=== PATIENT | male | born 1950 ===

== ENCOUNTER 2018-01-16 10:23 | Day surgery (SDC) | payer SELFPAY ==
[2018-01-16 10:40] VITALS: BMI 26.6
[2018-01-16] MEDS ORDERED: Propofol 10 mg/ml Inj (20 ML) ONE ×3 (11:42→12:34)
[2018-01-16] MEDS ORDERED: Midazolam 2 MG/2 ML VIAL ONE (11:42)
[2018-01-16] MEDS ORDERED: Lidocaine 2% Jelly (Uro-Jet) ONE (11:43)
[2018-01-16] MEDS ORDERED: ceFAZolin IV 1 gm in Dextrose 1 GM/50 ML BAG IVPB ONE (11:43)
--- NOTE | 2018-01-16 13:00 | PCM.SURG1 ---
Surgeon's Initial Post Op Note - Surgeon's Notes Surgeon: saravanan Flex O Writer Operator: none Type of Anesthesia: IV Sedation Anesthesia Administered By: Jennifer Pre-Operative Diagnosis: bph.elevated psa.gross hematuria. Operative Findings: bph.prostate bleeding.papillary lesions rt.lateral wall.prostate calculi. Post-Operative Diagnosis: bph.papillary lesios rt.lateral wall.prostate bleeding. Operation Performed: cystoscopy.bladder biopsy -fulguration.prostate bleeding fulguration. Specimen/Specimens Removed: papillary bladder lesion. Estimated Blood Loss: EBL {In ML}: 10 Blood Products Given: N/A Drains Used: No Drains Post-Op Condition: Good Date of Surgery/Procedure: 01/16/18 Time of Surgery/Procedure: 13:04
[2018-01-16] MEDS ORDERED: HYDROmorphone 0.5 mg/0.5 ml ISec IVP PRN (13:16)
[2018-01-16 13:25] VITALS: TEMP 97
[2018-01-16 14:30] VITALS: BP 59/73; PULSE 90; RESP 18; O2SAT 100
--- NOTE | 2018-01-21 03:19 | OP ---
PROCEDURE DATE: 01/16/2018 PREOPERATIVE DIAGNOSES: Benign prostatic hypertrophy, gross hematuria. POSTOPERATIVE DIAGNOSES: Benign prostatic hypertrophy, prostatitis, prostatic calculi, papillary lesion of right lateral wall. OPERATION: Cystoscopy, bladder biopsy with fulguration, prostate bleeding fulguration. SURGEON: Kumar Linn MD FINDINGS: Good bladder capacity. Marked trabeculated bladder, a small area about 0.5 cm with superficial papillary lesion with the right lateral wall. Ureteral orifices not visualized because of the very large prostate gland. Moderate prostate bleeding present and prostatic calculi were present. Membranous and pendulous urethra normal. TECHNIQUE: This patient was placed in lithotomy position. The external genitalia were prepped and draped in the usual sterile fashion. A # 22 panendoscope was introduced in the bladder. Findings as above. A small area of papillary lesion of the right lateral wall was biopsied and then thoroughly fulgurated. Also, the moderate prostate bleeding due to prostatitis was also fulgurated. A #20 [employer] [place] [place] [employer] [place] catheter was placed in the bladder over a 0.35 guidewire. The bladder was irrigated. No bleeding was present at the end of the procedure. The patient withstood the procedure well and returned to recovery room in satisfactory condition. Kumar Linn MD
== END 2018-01-16 16:00 | disposition home or self-care (01) ==
LOC: C.SDS 10:23
PROVIDERS: ATTEND Urology
DX: N40.0 Benign prostatic hyperplasia without lower urinary tract symptoms (principal); R31.0 Gross hematuria
CPT/HCPCS: 52204; 88305; A4358; C1769; J0690; J1170

== ENCOUNTER 2018-07-11 19:51 | Emergency (ER) | payer OTHER, SELFPAY ==
[2018-07-11 19:51] VITALS: BMI 26.6
[2018-07-11] MEDS ORDERED: Lidocaine Hydrochloride 10 ML INJ ONE (21:26)
[2018-07-11] MEDS ORDERED: Lidocaine 1% Inj (20ml) INFIL ONE (23:05)
--- NOTE | 2018-07-11 23:06 | C.PDOC ---
History Of Present Illness 67 y/o male presents to ed with laceration to left lower leg, pt tripped on pavement and landed on sharp metal object. pt went to another doctor prior to coming to ed, was given a tetanus shot and told to go to hospitalfor further evaluation. no other injuries. did not hit head. no cp or dizziness prior to fall. Time Seen by Provider: 07/11/18 20:18 Chief Complaint (Nursing): Abnormal Skin Integrity History Per: Patient History/Exam Limitations: no limitations Onset/Duration Of Symptoms: Hrs (7), Days Current Symptoms Are (Timing): Still Present Location Of Injury: Left: Leg Quality Of Symptoms: Painful, Swollen Past Medical History Reviewed: Historical Data, Nursing Documentation, Vital Signs Vital Signs: Last Vital Signs Temp 98.7 F 07/11/18 20:15 Pulse 64 07/11/18 20:15 Resp 16 07/11/18 20:15 BP 197/98 H 07/11/18 20:15 Pulse Ox 98 07/11/18 20:15 - Medical History PMH: Fractures (LEFT CLAVICAL 35 YEARS AGO), HTN Family History: States: Unknown Family Hx - Social History Hx Alcohol Use: No Hx Substance Use: No - Immunization History Hx Tetanus Toxoid Vaccination: Yes Hx Influenza Vaccination: No Hx Pneumococcal Vaccination: No Review Of Systems Constitutional: Negative for: Fever, Chills Cardiovascular: Negative for: Chest Pain Respiratory: Negative for: Cough Gastrointestinal: Negative for: Nausea, Vomiting, Abdominal Pain Skin: Positive for: Bruising, Other (laceration left leg swelling left leg) Neurological: Negative for: Weakness, Numbness Physical Exam - Physical Exam Appears: Non-toxic, No Acute Distress Skin: Warm, Dry, Ecchymosis (lateral left calf surrounding laceration ), Other (3 x 3 cm L shaped laceration to mid left calf with swelling and surrounding ecchymosis, no active bleeding, clots seen in laceration, calf soft) Head: Atraumatic, Normacephalic Eye(s): bilateral: Normal Inspection Back: No Vertebral Tenderness Extremity: Swelling (swelling, ecchymosis and tenderness left lower extremity. no active bleeding form 3x3 L shaped laceration), Other (senbsation and strenght intact in left leg. ) Extremity: Left: Bony Point Tenderness (lower leg) Pulses: Left Dorsalis Pedis: Normal, Right Dorsalis Pedis: Normal Neurological/Psych: Oriented x3, Normal Speech, Normal Cognition, Normal Motor, Normal Sensation ED Course And Treatment O2 Sat by Pulse Oximetry: 98 Medical Decision Making Medical Decision Making: lac to left calf with clot formation and swelling; with pressure, hematoma/clots expressed from wound with mild pressure with active bleeding following. wound anesthetized with 1% lidocaine 10 ml and irrigated with ns. wound repaired with 12 sutures of 3-0 and 4-0 ethilon. wound continue to swell after suturing; pr essure dressing applied and leg elevated. will observe patient for a while. mild swelling surrounding wound. compartment soft. sensation intact to entire left extremity. patient able to move toes, foot left. Dr Dumas aware, will check wound prior to pt leaving ed. Disposition Counseled Patient/Family Regarding: Studies Performed, Diagnosis, Need For Followup, Rx Given - Disposition Disposition: HOME/ ROUTINE Disposition Time: 23:23 Condition: GOOD Additional Instructions: Keep leg elevated, with dressing on for next 24 hours. Make sure leg not getting bigger or more swollen or painful, or continued bleeding or numb or any tingling. If so, you must return to the ER right away for further treatment. Tylenol for pain. Suture removal in 10 days. Instructions: Laceration Repair With Stitches (DC) Forms: General Discharge Instructions, [facility] ([place]), Work Excuse - Clinical Impression Clinical Impression: Laceration of left lower leg
[2018-07-11 23:45] VITALS: BP 143/78; PULSE 63; RESP 18; TEMP 97.7
--- NOTE | 2018-07-12 09:00 | RAD ---
PROCEDURE: Radiographs of the left tibia and fibula. HISTORY: eval for fx, lac to mid leg COMPARISON: None available. TECHNIQUE: Frontal and lateral views obtained. FINDINGS: BONES: No acute displaced fracture. JOINT SPACES: No dislocation. OTHER FINDINGS: Evidence of soft tissue laceration with overlying bandage, mid lower extremity. No evidence of radiopaque foreign body. IMPRESSION: Evidence of soft tissue laceration with overlying bandage, mid lower extremity. No acute displaced fracture or dislocation. If symptoms persist, or if there is continued clinical concern, x-ray follow-up in 7-10 days should be considered.
[2018-07-13 23:21] VITALS: O2SAT 98
== END 2018-07-12 00:24 | disposition home or self-care (01) ==
LOC: C.ER 19:51
DX: S81.812A Laceration without foreign body, left lower leg, initial encounter (principal); W01.0XXA Fall on same level from slipping, tripping and stumbling without subsequent striking against object, initial encounter; Y92.480 Sidewalk as the place of occurrence of the external cause; I10 Essential (primary) hypertension

== ENCOUNTER 2018-07-13 14:40 | Emergency (ER) | payer OTHER ==
[2018-07-13 14:40] VITALS: BMI 26.6
[2018-07-13 14:58] VITALS: BP 157/78; PULSE 73; RESP 18; TEMP 99.1; O2SAT 98
[2018-07-13] MEDS ORDERED: Bacitracin 500 Units/gm Oint Foilpak UD TOP ONE (15:52)
--- NOTE | 2018-07-13 15:54 | C.PDOC ---
Time Seen by Provider: 07/13/18 15:32 Chief Complaint (Nursing): Wound Check Past Medical History Vital Signs: Last Vital Signs Temp 99.1 F 07/13/18 14:55 Pulse 73 07/13/18 14:55 Resp 18 07/13/18 14:55 BP 157/78 H 07/13/18 14:55 Pulse Ox 98 07/13/18 14:55 - Medical History PMH: Fractures (LEFT CLAVICAL 35 YEARS AGO), HTN Family History: States: Unknown Family Hx - Social History Hx Alcohol Use: No Hx Substance Use: No - Immunization History Hx Tetanus Toxoid Vaccination: Yes Hx Influenza Vaccination: No Hx Pneumococcal Vaccination: No ED Course And Treatment O2 Sat by Pulse Oximetry: 98 Medical Decision Making Medical Decision Making: pt gor wound check. mild erythema around wound edges, minimal warmth, d/c with keflex Disposition - Disposition Referrals: [facility] [Outside] Disposition: HOME/ ROUTINE Disposition Time: 16:53 Condition: GOOD Additional Instructions: Puedes ducharte; cambiar el vendaje diariamente en la pierna; lvela suavemente con agua y jabn, squela y luego aplique bacitracina (pomada antiboitoc). En; pierna elevada cuando sea posible; Compresas fras en la pierna para ayudar con la hinchazn. Tylenol para el dolor. Satanta los antibiticos segn lo prescrito. Regrese a la sarkis de emergencias para detectar cualquier signo de infeccin, lindsay enrojecimiento, peor hinchazn, drenaje de la herida. Fiebre, sensacin disminuida, o cualquier otra inquietud. Retirada de suturas en 8 arredondo. You may shower; change dressing daily on leg; wash gently with soap and water, pat dry, then apply bacitracin (antiboitoc ointment). En; leg elevated whem possible; cold compresses to leg to help with swelling. Tylenol for pain. Take antibiotics as prescribed. Return to ER for any signs of infection such as redness, worse swelling, drainage from wound. fever, decreased sensation, or any other concerns. Suture removal in 8 days. Prescriptions: Acetaminophen [Tylenol 325mg tab] 650 mg PO Q4 #50 tab Bacitracin OINT 1 applic TOP BID #1 tube Cephalexin [cephalexin] 500 mg PO Q6 #28 cap Instructions: Wound Care (DC) Forms: [employer] (Vietnamese) - Clinical Impression Clinical Impression: Visit for wound check
[2018-07-13] MEDS ORDERED: Bacitracin 500 Units/gm Oint Foilpak UD ONE (16:08)
== END 2018-07-13 17:01 | disposition home or self-care (01) ==
LOC: C.ER 14:40
DX: Z48.00 Encounter for change or removal of nonsurgical wound dressing (principal); I10 Essential (primary) hypertension

== ENCOUNTER 2018-07-17 10:24 | Inpatient (IN) | payer OTHER ==
[2018-07-17 10:29] VITALS: BMI 24.9
[2018-07-17 12:27] LABS: MEAN CELL VOLUME 89.7 fL (80.0-94.0); MEAN CORPUSCULAR HEMOGLOBIN 30.2 pg (27.0-31.0); MEAN CORPUSCULAR HGB CONC 33.7 g/dL (33.0-37.0); MEAN PLATELET VOLUME 8.2 fL (7.2-11.7); RBC 4.35 Mil/uL (4.40-5.90); RED CELL DISTRIBUTION WIDTH 14.1 % (11.5-14.5); WHITE BLOOD COUNT 7.9 K/uL (4.8-10.8)
[2018-07-17 12:31] LABS: HEMOGLOBIN 13.1 g/dL (12.0-18.0)
[2018-07-17] MEDS ORDERED: Piperacillin/Tazobact 3.375 GM in Sodium Chloride 100 ML IVPB STA (12:35)
[2018-07-17 12:39] LABS: ALB/GLOB RATIO 1.2 (1.0-2.1); ALBUMIN 4.4 g/dL (3.5-5.0); ALT/SGPT 29 U/L (21-72); AST/SGOT 34 U/L (17-59); BLOOD UREA NITROGEN 14 mg/dL (9-20); GFR NON-AFRICAN AMERICAN > 60
[2018-07-17] MEDS ORDERED: Piperacillin/Tazobact 3.375 gm 100 ML IVPB ONE (12:55)
--- NOTE | 2018-07-17 14:26 | C.PDOC ---
History Of Present Illness pt here for third visit in ed, was started on keflex 2nd ed visit on 07/13 for redness around wound. pt sts he took medications as prescribed. pt now here today with increased redness, swelling and pain to left leg, no fever or chills. Time Seen by Provider: 07/17/18 11:13 Chief Complaint (Nursing): Lower Extremity Problem/Injury History Per: Patient History/Exam Limitations: no limitations Past Medical History Reviewed: Historical Data, Nursing Documentation, Vital Signs Vital Signs: Last Vital Signs Temp 98.6 F 07/17/18 14:16 Pulse 63 07/17/18 14:16 Resp 16 07/17/18 14:16 BP 162/87 H 07/17/18 14:16 Pulse Ox 99 07/17/18 14:16 - Medical History PMH: Fractures (LEFT CLAVICAL 35 YEARS AGO), HTN Surgical History: No Surg Hx Family History: States: Unknown Family Hx - Social History Hx Alcohol Use: No Hx Substance Use: No - Immunization History Hx Tetanus Toxoid Vaccination: Yes Hx Influenza Vaccination: No Hx Pneumococcal Vaccination: No Review Of Systems Musculoskeletal: Positive for: Leg Pain (left) Physical Exam - Physical Exam Appears: Non-toxic, No Acute Distress Skin: Warm, Dry, Other (L-shaped laceration to left mid lower leg with ecchymosis to medial calf that extends to the lower thigh. there is surrounding erythema and warmth 3 inches distal, with swelling to the foot. ) Head: Atraumatic, Normacephalic Eye(s): bilateral: Normal Inspection Oral Mucosa: Moist Neck: Supple Chest: Symmetrical, No Deformity, No Tenderness Cardiovascular: Rhythm Regular, No Murmur Respiratory: Normal Breath Sounds, No Rales, No Rhonchi, No Wheezing Extremity: Normal ROM, Capillary Refill (less than 2 seconds ) Pulses: Left Dorsalis Pedis: Normal, Right Dorsalis Pedis: Normal Neurological/Psych: Oriented x3, Normal Speech, Normal Cognition ED Course And Treatment - Laboratory Results Result Diagrams: 07/17/18 12:23 07/17/18 12:23 Lab Results: Total Bilirubin 1.1 mg/dL (0.2-1.3) 07/17/18 12:23 AST 34 U/L (17-59) 07/17/18 12:23 ALT 29 U/L (21-72) 07/17/18 12:23 Alkaline Phosphatase 86 U/L (38-126) 07/17/18 12:23 Total Protein 8.1 g/dL (6.3-8.3) 07/17/18 12:23 Albumin 4.4 g/dL (3.5-5.0) 07/17/18 12:23 Globulin 3.7 gm/dL (2.2-3.9) 07/17/18 12:23 Albumin/Globulin Ratio 1.2 (1.0-2.1) 07/17/18 12:23 O2 Sat by Pulse Oximetry: 99 Medical Decision Making Medical Decision Making: Progress: Bloodwork, Venous Duplex Scan of left lower extremity ordered. Percocet PO and Zosyn IV given. discussed with Dr Cunningham, will admit to his service for worsening cellulitis that failed outpatient treatment. older charts reviewed; on initial ed visit, pt went to urgent care prior to coming to ed and was given a tetanus shopt at this urgent care facility per patient. Disposition Discussed With : Cong Grier Doctor Will See Patient In The: Hospital - Disposition Disposition: HOSPITALIZED Disposition Time: 14:30 Condition: GOOD - Clinical Impression Clinical Impression: Cellulitis of left anterior lower leg
[2018-07-17] MEDS ORDERED: Oxycodone/Acetaminophen 5/325 mg Tab PO STA (14:30)
[2018-07-17] MEDS ORDERED: Oxycodone/Acetaminophen 5/325 mg Tab ONE (14:50)
[2018-07-17] MEDS ORDERED: Vancomycin 1 GM 1 GM/250 ML BAG IVPB ONE (16:54)
[2018-07-17] MEDS: Piperacillin/Tazobact 3.375 GM in Sodium Chloride 100 ML IVPB SCH ×2 (19:31→22:01)
[2018-07-17] MEDS: Saccharomyces Boulardi 250 mg Cap PO SCH (19:32)
--- NOTE | 2018-07-17 21:30 | CP.PCM.HP ---
<Court Garg - Last Filed: 07/17/18 21:22> History of Present Illness - History of Present Illness History of Present Illness: Mr. Kaylyn Villeda is a 67 year old male PMH hypertension came to the ED for wound check. On Sat, 07/11, he tripped on pavement and landed on a sharp metal object. He received a tetanus booster at which recommended he come to the ED for sutures of the laceration. They placed 12 sutures total after expressing pus and hematomas. On 07/13, he returned to the ED for reddening of the wound, getting warmer. He was discharged with Cephalexin and Bacitracin. Patient states that he has been wrapping the wound with plastic in the shower, washing the wound with warm water and covering with Bacitracin as directed. He states he has been compliant with medication. He came in today as the reddening has spread and there is ecchymosis extending down his ankle and above his knee beyond the borders of the skin marker drawn during previous visits and ankle swelling. Denies fever, chills, weakness, chest pain, numbness, tingling, abdominal pain. PMD: none PMH: HTN controlled by weight los Med: Centrum MVI All: NKA PSxHx: Clavicle Fx repair 35 year ago FamHx: Mother - DM. Denies CAD, DM, CA, CT, CVA, bleeding disorders SocHx: Denies ever tobacco, alcohol, illicit drugs. Works at a [employer] office. Lives alone. Full Code Present on Admission - Present on Admission Any Indicators Present on Admission: No Review of Systems - Constitutional Constitutional: absent: Chills, Fatigue, Fever, Headache, Night Sweats, Weakness - EENT Eyes: absent: Blurred Vision, Diplopia Ears: absent: Tinnitus, Dizziness Nose/Mouth/Throat: absent: Dysphagia, Odynophagia - Cardiovascular Cardiovascular: absent: Chest Pain, Claudication, Diaphoresis, Dyspnea, Lightheadedness, Palpitations, Syncope - Respiratory Respiratory: absent: Cough, Dyspnea, Hemoptysis, Wheezing - Gastrointestinal Gastrointestinal: absent: Abdominal Pain, Constipation, Diarrhea, Nausea, Vomiting - Genitourinary Genitourinary: absent: Dysuria, Urinary Frequency, Urinary Hesitance - Musculoskeletal Musculoskeletal: Joint Swelling. absent: Arthralgias, Muscle Weakness, Myalgias, Numbness, Tingling - Integumentary Integumentary: Lesions, Non-Healing Lesions, Skin Pain, Swelling, Unusual Bruising. absent: Pruritus, Jaundice - Neurological Neurological: absent: Dizziness, Numbness, Headaches, Memory Loss, Syncope, Tingling - Psychiatric Psychiatric: absent: Anxiety, Depression, Hopelessness - Endocrine Endocrine: absent: Cold Intolorance, Excessive Sweating, Fatigue, Heat Intolorance - Hematologic/Lymphatic Hematologic: absent: Easy Bleeding, Easy Bruising Past Patient History - Tetanus Immunizations Tetanus Immunization: Up to Date - Past Medical History & Family History Past Medical History?: No - Past Social History Smoking Status: Never Smoked Alcohol: None Drugs: Denies Home Situation {Lives}: Alone - CARDIAC Hx Hypertension: Yes - MUSCULOSKELETAL/RHEUMATOLOGICAL Hx Fractures: Yes (LEFT CLAVICAL 35 YEARS AGO) - GENITOURINARY/GYNECOLOGICAL Hx Genitourinary Disorders: Yes Hx Prostate Problems: Yes (ELEVATED PSA) - PSYCHIATRIC Hx Substance Use: No - SURGICAL HISTORY Hx Surgeries: Yes Hx Orthopedic Surgery: Yes (REPAIR FRACTURED CLAVICAL) - ANESTHESIA Hx Anesthesia: Yes Hx Anesthesia Reactions: No Meds Allergies/Adverse Reactions: Allergies Allergy/AdvReac Type Severity Reaction Status Date / Time No Known Allergies Allergy Verified 07/17/18 10:28 Physical Exam - Constitutional Appears: Well, Non-toxic, No Acute Distress - Head Exam Head Exam: ATRAUMATIC, NORMOCEPHALIC - Eye Exam Eye Exam: EOMI, Normal appearance, PERRL - ENT Exam ENT Exam: Mucous Membranes Moist - Neck Exam Neck exam: Positive for: Full Rom, Normal Inspection. Negative for: Lymphadeno amber - Respiratory Exam Respiratory Exam: Clear to Auscultation Bilateral, NORMAL BREATHING PATTERN. absent: Rales, Rhonchi, Wheezes - Cardiovascular Exam Cardiovascular Exam: REGULAR RHYTHM, +S1, +S2. absent: Gallop, Rubs, Systolic Murmur - GI/Abdominal Exam GI & Abdominal Exam: Normal Bowel Sounds, Soft. absent: Distended, Firm, Guarding, Tenderness - Extremities Exam Extremities exam: Positive for: pedal edema, pedal pulses present Additional comments: IV access in R hand - Back Exam Back exam: absent: CVA tenderness (L), CVA tenderness (R) - Neurological Exam Neurological exam: Alert, CN II-XII Intact, Oriented x3, Reflexes Normal Additional comments: patient walks on crutches to avoid pressure on wound - Psychiatric Exam Psychiatric exam: Normal Affect, Normal Mood - Skin Skin Exam: Warm Additional comments: 5 inch bent laceration on anterior aspect L ernst. actively expressing hematoma and pus. [address] extensive indurated erythema around the lac. ecchymosis extends down anterior aspect of leg, wraps around ankle, and extending upward along the posterior aspect to 1/3 up the posterior thigh. non-tender to palpation except directly along laceration pedal pulse palpable bilaterally L foot warm. restricted ROM 2/2 edema of L ankle Results - Vital Signs Recent Vital Signs: Last Vital Signs Temp 98.4 F 07/17/18 19:39 Pulse 70 07/17/18 19:39 Resp 16 07/17/18 19:39 BP 189/89 H 07/17/18 19:39 Pulse Ox 100 07/17/18 19:39 - Labs Result Diagrams: 07/17/18 12:23 07/17/18 12:23 Labs: Laboratory Results - last 24 hr 07/17/18 07/17/18 12:23 12:23 WBC 7.9 RBC 4.35 L Hgb 13.1 D Hct 39.0 MCV 89.7 MCH 30.2 MCHC 33.7 RDW 14.1 Plt Count 397 MPV 8.2 Sodium 136 Potassium 4.1 Chloride 102 Carbon Dioxide 24 Anion Gap 13 BUN 14 Creatinine 0.6 L Est GFR ( Amer) > 60 Est GFR (Non-Af Amer) > 60 Random Glucose 104 Calcium 9.0 Total Bilirubin 1.1 AST 34 ALT 29 Alkaline Phosphatase 86 Total Protein 8.1 Albumin 4.4 Globulin 3.7 Albumin/Globulin Ratio 1.2 Assessment & Plan - Assessment and Plan (Free Text) Assessment: 67yo M PMH HTN admitted for cellulitis of poorly healing L ernst laceration. Plan: Cellulitis L Leg Poorly healing laceration refractory to outpatient treatment - sutures to be removed 10 days after placement, 07/21 - LE Doppler (07/17): neg for DVT - CT L LE without contrast (07/17): pending read - f/u Blood Cx - f/u Wound Cx - Percocet 1 tab po, Zosyn 3.375gm IVPB given in ED - Motrin 400mg po q4 prn for pain - Zosyn 3.375gm IVPB q6 (started 07/17) - Vanc 1gm IVPB q12 (started 07/17) - Podiatry consulted, Dr. Vanessa Hypertension - patient not on anything at home. controlled via lifestyle choices - Losartan 50mg po daily - Norvasc 5mg po daily - monitor vitals PPx - DVT: Heparin 5000u sc q8 - GI: Florastor 250mg po bid - Diet: HHD 2gNa d/w Dr. Cherrie Garg PGY-1 - Date & Time Date: 07/17/18 Time: 15:30 <Cong Grier - Last Filed: 07/18/18 19:16> Results - Vital Signs Recent Vital Signs: Last Vital Signs Temp 98 F 07/18/18 15:56 Pulse 80 07/18/18 15:56 Resp 20 07/18/18 15:56 BP 146/81 07/18/18 15:56 Pulse Ox 99 07/18/18 15:56 - Labs Result Diagrams: 07/18/18 07:55 07/18/18 07:56 Labs: Laboratory Results - last 24 hr 07/18/18 07/18/18 07/18/18 07:55 07:55 07:56 WBC 9.7 RBC 4.04 L Hgb 12.2 Hct 36.1 MCV 89.4 MCH 30.1 MCHC 33.7 RDW 14.1 Plt Count 391 MPV 8.3 Neut % (Auto) 71.2 Lymph % (Auto) 15.0 L [place] % (Auto) 8.4 Eos % (Auto) 4.5 H Baso % (Auto) 0.9 Neut # (Auto) 6.9 Lymph # (Auto) 1.5 [place] # (Auto) 0.8 Eos # (Auto) 0.4 Baso # (Auto) 0.1 PT 11.9 INR 1.1 APTT 41 H Sodium 135 Potassium 3.9 Chloride 102 Carbon Dioxide 27 Anion Gap 10 BUN 12 Creatinine 0.8 Est GFR ( Amer) > 60 Est GFR (Non-Af Amer) > 60 Random Glucose 106 Calcium 8.4 L Phosphorus 3.7 Magnesium 2.2 Total Bilirubin 1.2 AST 31 ALT 25 Alkaline Phosphatase 80 Total Protein 7.0 Albumin 3.8 Globulin 3.2 Albumin/Globulin Ratio 1.2 Attending/Attestation - Attestation I have personally seen and examined this patient.: Yes I have fully participated in the care of the patient.: Yes I have reviewed all pertinent clinical information: Yes Notes (Text): 67yo M PMH HTN admitted for cellulitis of poorly healing L ernst laceration. Plan: Cellulitis L Leg with Abscess and hematoma ecchymosis Hypertension
[2018-07-18] MEDS: Piperacillin/Tazobact 3.375 GM in Sodium Chloride 100 ML IVPB SCH ×4 (04:30→22:12)
[2018-07-18 08:00] LABS: BASO # 0.1 K/uL (0.0-0.2); BASO % 0.9 % (0.0-2.0); EOS # 0.4 K/uL (0.0-0.7); EOS % 4.5 % (0.0-4.0); HEMOGLOBIN 12.2 g/dL (12.0-18.0); LYMPH # 1.5 K/uL (1.0-4.3); MEAN CELL VOLUME 89.4 fL (80.0-94.0); MEAN CORPUSCULAR HEMOGLOBIN 30.1 pg (27.0-31.0); MEAN CORPUSCULAR HGB CONC 33.7 g/dL (33.0-37.0); MEAN PLATELET VOLUME 8.3 fL (7.2-11.7); MONO # 0.8 K/uL (0.0-0.8); MONO % 8.4 % (0.0-10.0); NEUT # 6.9 K/uL (1.8-7.0); NEUT % 71.2 % (50.0-75.0); RBC 4.04 Mil/uL (4.40-5.90); RED CELL DISTRIBUTION WIDTH 14.1 % (11.5-14.5); WHITE BLOOD COUNT 9.7 K/uL (4.8-10.8)
[2018-07-18 08:16] LABS: INR 1.1; PROTHROMBIN TIME 11.9 SECONDS (9.7-12.2)
[2018-07-18 08:26] LABS: ALB/GLOB RATIO 1.2 (1.0-2.1); ALBUMIN 3.8 g/dL (3.5-5.0); ALT/SGPT 25 U/L (21-72); AST/SGOT 31 U/L (17-59); BLOOD UREA NITROGEN 12 mg/dL (9-20); CALCIUM 8.4 mg/dl (8.6-10.4); GFR NON-AFRICAN AMERICAN > 60
--- NOTE | 2018-07-18 08:50 | CT ---
CT left tibia and fibula HISTORY: Laceration. Wound. Comparison: X-ray dated 07/11/2018 Technique: Multiple contiguous axial images were performed through the left tibia and fibula without the use of intravenous contrast. Subsequently, sagittal and coronal reformatted images were obtained. This CT exam was performed using one or more of the following dose reduction techniques: Automated exposure control, adjustment of the mA and/or kV according to patient size, and/or use of iterative reconstruction technique. Findings: Prominent reticulation and edema seen within the circumferential subcutaneous soft tissues of the left lower extremity at the level of the tibia and fibula suggestive for cellulitis. Additional prominent medial and lateral malleolar soft tissue swelling. At the level of the proximal to mid medullary cavity of the left tibia, extending along the anteromedial cortex of the tibia, within the subcutaneous soft tissues as seen on series 2, image 42 and series 602 image 27, there is an ill-defined lobulated heterogeneous hyperattenuated collection measuring 6.8 x 1.9 x 6.8 centimeters. This demonstrates a Hounsfield unit attenuation of 49. The soft tissue laceration is seen anteromedially at this level as demonstrated on series 2, image 48. Prominent reticulation and edema as well as fluid within the adjacent subcutaneous soft tissues circumferentially. This is of uncertain clinical etiology and may represent a hematoma and/or complex hematogenous collection. Additional considerations may include a developing phlegmon and/or abscess collection and or soft tissue mass and or additional etiology. Clinical correlation. This collection/lesion abuts the anteromedial cortex of the tibia; however, there appears to be no gross cortical irregularity at this juncture. Continued interval follow-up may be helpful. Narrowing of the patellofemoral joint space. Degenerative changes noted at the talonavicular joint space as well as within the midfoot. Patchy osteopenia within the anterior calcaneus. Plantar and dorsal calcaneal spurring. Impression: At the level of the proximal to mid medullary cavity of the left tibia, extending along the anteromedial cortex of the tibia, within the subcutaneous soft tissues as seen on series 2, image 42 and series 602 image 27, there is an ill-defined lobulated heterogeneous hyperattenuated collection measuring 6.8 x 1.9 x 6.8 centimeters. This demonstrates a Hounsfield unit attenuation of 49. The soft tissue laceration is seen anteromedially at this level as demonstrated on series 2, image 48. Prominent reticulation and edema as well as fluid within the adjacent subcutaneous soft tissues circumferentially. This is of uncertain clinical etiology and may represent a hematoma and/or complex hematogenous collection. Additional considerations may include a developing phlegmon and/or abscess collection and or soft tissue mass and or additional etiology. Clinical correlation. This collection/lesion abuts the anteromedial cortex of the tibia; however, there appears to be no gross cortical irregularity at this juncture. Continued interval follow-up may be helpful. Additional findings as above. A preliminary report was generated at 7:40 p.m. on 07/17/[address] Allan Swartz from [employer].
--- NOTE | 2018-07-18 09:53 | CP.PCM.CON ---
History of Present Illness - History of Present Illness History of Present Illness: Podiatry Consult Note- Dr. Vanessa 67 year old male with no PMH seen and evaluated at bedside for left leg cellulitis with possible abscess with attending Dr. Vanessa. Patient reports that on Saturday, a metal object hit his left leg and caused a laceration. He went to the emergency room in which he reports the wound was sutured up. Reports increase swelling and pain and came back to the ED on Saturday in which he was given antibiotics. Reports feeling pain to his left leg. Worse with touching or pressure. Reports the leg appears more red and increase in size. Patient denies nausea, fever, shortness of breath, chest pains or chills. Denies calf tenderness. PMH: denies ALL: NKDA FH: father- DM SH: denies smoking, drinking or illicit abilio use MEDS: denies Past Patient History - Tetanus Immunizations Tetanus Immunization: Up to Date - Past Medical History & Family History Past Medical History?: No - Past Social History Smoking Status: Never Smoked Alcohol: None Drugs: Denies Home Situation {Lives}: Alone - CARDIAC Hx Hypertension: Yes - MUSCULOSKELETAL/RHEUMATOLOGICAL Hx Fractures: Yes (LEFT CLAVICAL 35 YEARS AGO) - GENITOURINARY/GYNECOLOGICAL Hx Genitourinary Disorders: Yes Hx Prostate Problems: Yes (ELEVATED PSA) - PSYCHIATRIC Hx Substance Use: No - SURGICAL HISTORY Hx Surgeries: Yes Hx Orthopedic Surgery: Yes (REPAIR FRACTURED CLAVICAL) - ANESTHESIA Hx Anesthesia: Yes Hx Anesthesia Reactions: No Meds Allergies/Adverse Reactions: Allergies Allergy/AdvReac Type Severity Reaction Status Date / Time No Known Allergies Allergy Verified 07/17/18 10:28 - Medications Medications: Current Medications Amlodipine Besylate (Norvasc) 5 mg PO DAILY [facility] Last Admin: 07/17/18 20:30 Dose: 5 mg Heparin Sodium (Porcine) (Heparin) 5,000 units SC Q8 [facility] Last Admin: 07/18/18 05:49 Dose: 5,000 units Vancomycin HCl 1 gm/ Sodium (Chloride) 250 mls @ 166.7 mls/hr IVPB Q12H [facility]; Protocol Last Admin: 07/18/18 05:00 Dose: 166.7 mls/hr Piperacillin Sod/Tazobactam (Sod 3.375 gm/ Sodium Chloride) 100 mls @ 200 mls/hr IVPB Q6H [facility]; Protocol Last Admin: 07/18/18 04:30 Dose: 200 mls/hr Ibuprofen (Motrin Tab) 400 mg PO Q4 PRN PRN Reason: Pain, moderate (4-7) Losartan Potassium (Cozaar) 50 mg PO DAILY [facility] Last Admin: 07/17/18 17:09 Dose: 50 mg Saccharomyces Boulardii (Florastor) 250 mg PO BID [facility] Last Admin: 07/17/18 19:32 Dose: 250 mg Physical Exam - Constitutional Appears: Well, Non-toxic, No Acute Distress - Extremities Exam Extremities exam: Negative for: calf tenderness Additional comments: Left lower extremity examination: VASC: DP and PT palpable 2/4, temperature warm to warm, localized swelling to left anterior mid leg at site of injury/trauma; digital hair present. Edema noted to the lateral and medial malleolus of left ankle ORTHO: moderate-severe pain with palpation to the left anterior 2/3 of leg. MM is 5/5 in all four compartments. Ecchymosis noted to medial and lateral foot; no pain with palpation to the medial and lateral aspect of foot. Ecchymosis noted to posterior aspect of left knee NEURO: gross and protective sensation intact DERM: sutured laceration measuring approximately 5cm in length at the anterior 2/3 of leg with skin coapted and reapproximated. Erythema noted to periwound, no active purulence, or malodorous however fluctance appreciated with possible abscess/hematoma underlying closed laceration site. - Neurological Exam Neurological exam: Alert, Oriented x3 - Psychiatric Exam Psychiatric exam: Normal Affect, Normal Mood Results - Vital Signs Recent Vital Signs: Last Vital Signs Temp 98.8 F 07/18/18 07:00 Pulse 69 07/18/18 07:00 Resp 20 07/18/18 07:00 BP 155/82 H 07/18/18 07:00 Pulse Ox 97 07/18/18 07:00 - Labs Result Diagrams: 07/18/18 07:55 07/18/18 07:56 Labs: Laboratory Results - last 24 hr 07/17/18 07/17/18 07/18/18 12:23 12:23 07:55 WBC 7.9 9.7 RBC 4.35 L 4.04 L Hgb 13.1 D 12.2 Hct 39.0 36.1 MCV 89.7 89.4 MCH 30.2 30.1 MCHC 33.7 33.7 RDW 14.1 14.1 Plt Count 397 391 MPV 8.2 8.3 Neut % (Auto) 71.2 Lymph % (Auto) 15.0 L [place] % (Auto) 8.4 Eos % (Auto) 4.5 H Baso % (Auto) 0.9 Neut # (Auto) 6.9 Lymph # (Auto) 1.5 [place] # (Auto) 0.8 Eos # (Auto) 0.4 Baso # (Auto) 0.1 PT INR APTT Sodium 136 Potassium 4.1 Chloride 102 Carbon Dioxide 24 Anion Gap 13 BUN 14 Creatinine 0.6 L Est GFR ( Amer) > 60 Est GFR (Non-Af Amer) > 60 Random Glucose 104 Calcium 9.0 Phosphorus Magnesium Total Bilirubin 1.1 AST 34 ALT 29 Alkaline Phosphatase 86 Total Protein 8.1 Albumin 4.4 Globulin 3.7 Albumin/Globulin Ratio 1.2 07/18/18 07/18/18 07:55 07:56 WBC RBC Hgb Hct MCV MCH MCHC RDW Plt Count MPV Neut % (Auto) Lymph % (Auto) [place] % (Auto) Eos % (Auto) Baso % (Auto) Neut # (Auto) Lymph # (Auto) [place] # (Auto) Eos # (Auto) Baso # (Auto) PT 11.9 INR 1.1 APTT 41 H Sodium 135 Potassium 3.9 Chloride 102 Carbon Dioxide 27 Anion Gap 10 BUN 12 Creatinine 0.8 Est GFR ( Amer) > 60 Est GFR (Non-Af Amer) > 60 Random Glucose 106 Calcium 8.4 L Phosphorus 3.7 Magnesium 2.2 Total Bilirubin 1.2 AST 31 ALT 25 Alkaline Phosphatase 80 Total Protein 7.0 Albumin 3.8 Globulin 3.2 Albumin/Globulin Ratio 1.2 Assessment & Plan - Assessment and Plan (Free Text) Assessment: 67M with no PMH seen and evaluated for left leg closed laceration with likely underlying abscess/hematoma Plan: Patient seen and examined with attending Dr. Vanessa Discussed plan in detail with Dr. Vanessa Labs, vitals, chart reviewed Negative DVT CT Left lower extremity without contrast (07/17): ill-defined lobulated collection 6.8x1.9x6.8cm. prominent reticulation and edema circumferential around wound Sutures removed, cleansed and dressed with dsd and kerlix. Patient is sensate. Wound culture left ernst 07/17/18 gram negative laura preliminary Patient will go to the OR tomorrow at 12:30pm on 07/19/18 for incision and drainage of abscess/hematoma of left lower extremity with Dr. Vanessa Per primary "may proceed low to mod risk only risk factor age and hypertension" NPO status ordered. Nothing to eat or drink after midnight except for meds Heparin held Explained to patient at length benefits, alternatives, risks, and complications and patient agrees with surgery All questions/concerns addressed Will continue to follow patient while in house THank you for allowing us to participate in patient's care
[2018-07-18] MEDS ORDERED: Bupivacaine 0.25% 20 ML INJ IJ ONE (10:01)
[2018-07-18] MEDS ORDERED: Lidocaine 2% w Epi 1:100,000 Inj IJ ONE (10:01)
[2018-07-18] MEDS: Saccharomyces Boulardi 250 mg Cap PO SCH ×2 (10:49→17:43)
--- NOTE | 2018-07-18 14:26 | CP.PCM.PN ---
<Court Garg - Last Filed: 07/18/18 14:54> Subjective - Date & Time of Evaluation Date of Evaluation: 07/18/18 Time of Evaluation: 10:15 - Subjective Subjective: PGY-1 Medicine Progress Note for Dr. Grier Patient was seen and examined today at bedside in no acute distress. Nurse reports no overnight events. Patient has no new complaints. He reports better movement of his ankle now that some of the swelling has gone down. Denies fevers, chills, chest pain, shortness of breath, fatigue, weakness, numbness, tingling. Objective - Vital Signs/Intake and Output Vital Signs (last 24 hours): Temp Pulse Resp BP Pulse Ox 98.8 F 69 20 155/82 H 97 07/18/18 07:00 07/18/18 07:00 07/18/18 07:00 07/18/18 07:00 07/18/18 07:00 - Medications Medications: Current Medications Amlodipine Besylate (Norvasc) 5 mg PO DAILY [facility] Last Admin: 07/17/18 20:30 Dose: 5 mg Heparin Sodium (Porcine) (Heparin) 5,000 units SC Q8 [facility] Last Admin: 07/18/18 05:49 Dose: 5,000 units Vancomycin HCl 1 gm/ Sodium (Chloride) 250 mls @ 166.7 mls/hr IVPB Q12H [facility]; Protocol Last Admin: 07/18/18 05:00 Dose: 166.7 mls/hr Piperacillin Sod/Tazobactam (Sod 3.375 gm/ Sodium Chloride) 100 mls @ 200 mls/hr IVPB Q6H [facility]; Protocol Last Admin: 07/18/18 10:49 Dose: 200 mls/hr Ibuprofen (Motrin Tab) 400 mg PO Q4 PRN PRN Reason: Pain, moderate (4-7) Losartan Potassium (Cozaar) 50 mg PO DAILY [facility] Last Admin: 07/18/18 10:49 Dose: 50 mg Saccharomyces Boulardii (Florastor) 250 mg PO BID [facility] Last Admin: 07/18/18 10:49 Dose: 250 mg - Labs Labs: 07/18/18 07:55 07/18/18 07:56 PT 11.9 SECONDS (9.7-12.2) 07/18/18 07:55 INR 1.1 07/18/18 07:55 APTT 41 SECONDS (21-34) H 07/18/18 07:55 - Constitutional Appears: Non-toxic, No Acute Distress - Eye Exam Eye Exam: EOMI - ENT Exam ENT Exam: Mucous Membranes Moist - Respiratory Exam Respiratory Exam: Clear to Ausculation Bilateral, NORMAL BREATHING PATTERN. absent: Rales, Rhonchi, Wheezes - Cardiovascular Exam Cardiovascular Exam: REGULAR RHYTHM, +S1, +S2. absent: Gallop, Rubs, Murmur - GI/Abdominal Exam GI & Abdominal Exam: Soft, Normal Bowel Sounds. absent: Distended, Firm, Guarding, Tenderness, Rebound - Extremities Exam Extremities Exam: Normal Capillary Refill. absent: Calf Tenderness Additional comments: IV access in R hand - Back Exam Back Exam: absent: CVA tenderness (L), CVA tenderness (R) - Neurological Exam Neurological Exam: Alert, Awake, CN II-XII Intact, Oriented x3 Additional comments: patient uses crutches to avoid weight bearing on affected leg sensation intact, ROM of affected ankle improved - Psychiatric Exam Psychiatric exam: Normal Affect, Normal Mood - Skin Additional comments: 5 inch bent laceration on anterior aspect L ernst. pus able to be expressed on milking. [address] extensive indurated erythema around the lac. ecchymosis extends down anterior aspect of leg, wraps around ankle, and extending upward along the posterior aspect to 1/3 up the posterior thigh. non-tender to palpation except directly along laceration pedal pulse palpable bilaterally L foot warm. restricted ROM 2/2 edema of L ankle Assessment and Plan - Assessment and Plan (Free Text) Assessment: 67yo M PMH HTN admitted for cellulitis vs. phlegmon vs. abscess of poorly healing L ernst laceration. Plan: L Leg Wound Poorly healing laceration refractory to outpatient treatment - patient remains afebrile and without elevated WBC - LE Doppler (07/17): neg for DVT - CT L LE without contrast (07/17): ill-defined lobulated collection 6.8x1.9x6.8cm. prominent reticulation and edema circumferential around wound; consider hematoma vs developing phlegmon vs abscess. - Blood Cx (07/17): neg @ 24 hours - Wound Cx (07/17): gram neg rods - f/u CK - Percocet 1 tab po, Zosyn 3.375gm IVPB given in ED - Tylenol 650mg po q6 prn for pain - Zosyn 3.375gm IVPB q6 (started 07/17) - Vanc 1gm IVPB q12 (started 07/17) - Podiatry consulted, Dr. Vanessa - removed stitches, wound expressed, re-dressed - General Surgery consulted, Dr. Eduardo Todd Hypertension - patient not on anything at home. controlled via lifestyle choices - Losartan 50mg po daily - Norvasc 5mg po daily - monitor vitals PPx - DVT: Heparin 5000u sc q8 - GI: Florastor 250mg po bid - Diet: HHD 2gNa - IVF: NS@100 - PT consulted d/w Dr. Cherrie Garg PGY-1 <Cong Grier - Last Filed: 07/18/18 19:18> Objective - Vital Signs/Intake and Output Vital Signs (last 24 hours): Temp Pulse Resp BP Pulse Ox 98 F 80 20 146/81 99 07/18/18 15:56 07/18/18 15:56 07/18/18 15:56 07/18/18 15:56 07/18/18 15:56 - Medications Medications: Current Medications Acetaminophen (Tylenol 325mg Tab) 650 mg PO Q6 PRN PRN Reason: Pain, moderate (4-7) Amlodipine Besylate (Norvasc) 5 mg PO DAILY [facility] Last Admin: 07/17/18 20:30 Dose: 5 mg Heparin Sodium (Porcine) (Heparin) 5,000 units SC Q8 [facility] Last Admin: 07/18/18 14:58 Dose: Not Given Vancomycin HCl 1 gm/ Sodium (Chloride) 250 mls @ 166.7 mls/hr IVPB Q12H [facility]; Protocol Last Admin: 07/18/18 17:41 Dose: 166.7 mls/hr Piperacillin Sod/Tazobactam (Sod 3.375 gm/ Sodium Chloride) 100 mls @ 200 mls/hr IVPB Q6H [facility]; Protocol Last Admin: 07/18/18 16:30 Dose: 200 mls/hr Losartan Potassium (Cozaar) 50 mg PO DAILY [facility] Last Admin: 07/18/18 10:49 Dose: 50 mg Saccharomyces Boulardii (Florastor) 250 mg PO BID [facility] Last Admin: 07/18/18 17:43 Dose: 250 mg - Labs Labs: 07/18/18 07:55 07/18/18 07:56 PT 11.9 SECONDS (9.7-12.2) 07/18/18 07:55 INR 1.1 07/18/18 07:55 APTT 41 SECONDS (21-34) H 07/18/18 07:55 Attending/Attestation - Attestation I have personally seen and examined this patient.: Yes I have fully participated in the care of the patient.: Yes I have reviewed all pertinent clinical information, including history, physical exam and plan: Yes Notes (Text): no history of chf, no cad, no cva, no ckd hypertension better on medications plan for OR jess may proceed low to mod risk only risk factor age and hypertension hypertension improved.
[2018-07-18] MEDS: Sodium Chloride 0.9% 1,000 ML IV SCH ×2 (15:36→16:10)
[2018-07-19] MEDS: Piperacillin/Tazobact 3.375 GM in Sodium Chloride 100 ML IVPB SCH ×3 (03:57→17:11)
[2018-07-19 07:02] LABS: INR 1.2; PROTHROMBIN TIME 12.9 SECONDS (9.7-12.2)
[2018-07-19 07:16] LABS: BASO # 0.1 K/uL (0.0-0.2); BASO % 0.7 % (0.0-2.0); EOS # 0.3 K/uL (0.0-0.7); EOS % 3.1 % (0.0-4.0); HEMOGLOBIN 11.8 g/dL (12.0-18.0); LYMPH # 1.7 K/uL (1.0-4.3); LYMPH % 17.1 % (20.0-40.0); MEAN CELL VOLUME 89.9 fL (80.0-94.0); MEAN CORPUSCULAR HEMOGLOBIN 29.5 pg (27.0-31.0); MEAN CORPUSCULAR HGB CONC 32.8 g/dL (33.0-37.0); MONO % 10.4 % (0.0-10.0); NEUT # 6.8 K/uL (1.8-7.0); NEUT % 68.7 % (50.0-75.0); RED CELL DISTRIBUTION WIDTH 14.2 % (11.5-14.5)
[2018-07-19 07:17] LABS: BLOOD UREA NITROGEN 14 mg/dL (9-20); CALCIUM 8.4 mg/dl (8.6-10.4); GFR NON-AFRICAN AMERICAN > 60
[2018-07-19] MEDS: Saccharomyces Boulardi 250 mg Cap PO SCH ×2 (09:59→17:29)
--- NOTE | 2018-07-19 11:37 | CP.PCM.CON ---
History of Present Illness - History of Present Illness History of Present Illness: Podiatry progress note for Dr. Vanessa, 67 yo male with PMhx seen and evaluated preoperatively at bedside for left leg cellulitis with possible abscess versus hematoma with attending Dr. Vanessa. Patient admits to being NPO. Denies acute overnight events. Denies f/n/v/sob. Past Patient History - Tetanus Immunizations Tetanus Immunization: Up to Date - Past Medical History & Family History Past Medical History?: No - Past Social History Smoking Status: Never Smoked Alcohol: None Drugs: Denies Home Situation {Lives}: Alone - CARDIAC Hx Hypertension: Yes - PULMONARY Hx Respiratory Disorders: No - NEUROLOGICAL Hx Neurological Disorder: No - HEENT Hx HEENT Problems: No - RENAL Hx Chronic Kidney Disease: No - ENDOCRINE/METABOLIC Hx Endocrine Disorders: No - HEMATOLOGICAL/ONCOLOGICAL Hx Blood Disorders: No - INTEGUMENTARY Hx Dermatological Problems: No - MUSCULOSKELETAL/RHEUMATOLOGICAL Hx Fractures: Yes (LEFT CLAVICAL 35 YEARS AGO) - GASTROINTESTINAL Hx Gastrointestinal Disorders: No - GENITOURINARY/GYNECOLOGICAL Hx Genitourinary Disorders: Yes Hx Prostate Problems: Yes (ELEVATED PSA) - PSYCHIATRIC Hx Substance Use: No - SURGICAL HISTORY Hx Surgeries: Yes Hx Orthopedic Surgery: Yes (REPAIR FRACTURED CLAVICAL) - ANESTHESIA Hx Anesthesia: Yes Hx Anesthesia Reactions: No Meds Allergies/Adverse Reactions: Allergies Allergy/AdvReac Type Severity Reaction Status Date / Time No Known Allergies Allergy Verified 07/17/18 10:28 - Medications Medications: Current Medications Acetaminophen (Tylenol 325mg Tab) 650 mg PO Q6 PRN PRN Reason: Pain, moderate (4-7) Amlodipine Besylate (Norvasc) 5 mg PO DAILY [facility] Last Admin: 07/19/18 09:57 Dose: 5 mg Heparin Sodium (Porcine) (Heparin) 5,000 units SC Q8 [facility] Last Admin: 07/18/18 14:58 Dose: Not Given Vancomycin HCl 1 gm/ Sodium (Chloride) 250 mls @ 166.7 mls/hr IVPB Q12H [facility]; Protocol Last Admin: 07/19/18 04:56 Dose: 166.7 mls/hr Piperacillin Sod/Tazobactam (Sod 3.375 gm/ Sodium Chloride) 100 mls @ 200 mls/hr IVPB Q6H [facility]; Protocol Last Admin: 07/19/18 09:59 Dose: 200 mls/hr Losartan Potassium (Cozaar) 50 mg PO DAILY [facility] Last Admin: 07/19/18 09:58 Dose: 50 mg Saccharomyces Bomaurodii (Florastor) 250 mg PO BID [facility] Last Admin: 07/19/18 09:59 Dose: 250 mg Physical Exam - Constitutional Appears: Well, Non-toxic, No Acute Distress - Head Exam Head Exam: ATRAUMATIC, NORMOCEPHALIC - Eye Exam Eye Exam: Normal appearance Pupil Exam: NORMAL ACCOMODATION - Extremities Exam Additional comments: dressing c/d/i, cft <3 secs x 5. Results - Vital Signs Recent Vital Signs: Last Vital Signs Temp 98.3 F 07/19/18 08:41 Pulse 66 07/19/18 08:41 Resp 20 07/19/18 08:41 BP 129/73 07/19/18 08:41 Pulse Ox 97 07/19/18 08:41 - Labs Result Diagrams: 07/19/18 06:38 07/19/18 06:38 Labs: Laboratory Results - last 24 hr 07/19/18 07/19/18 07/19/18 06:38 06:38 06:38 WBC 10.0 RBC 4.00 L Hgb 11.8 L Hct 36.0 MCV 89.9 MCH 29.5 MCHC 32.8 L RDW 14.2 Plt Count 383 MPV 8.0 Neut % (Auto) 68.7 Lymph % (Auto) 17.1 L [place] % (Auto) 10.4 H Eos % (Auto) 3.1 Baso % (Auto) 0.7 Neut # (Auto) 6.8 Lymph # (Auto) 1.7 [place] # (Auto) 1.0 H Eos # (Auto) 0.3 Baso # (Auto) 0.1 PT 12.9 H INR 1.2 APTT 34 D Sodium 137 Potassium 4.0 Chloride 104 Carbon Dioxide 29 Anion Gap 9 L BUN 14 Creatinine 0.9 Est GFR ( Amer) > 60 Est GFR (Non-Af Amer) > 60 Random Glucose 110 Calcium 8.4 L Assessment & Plan - Assessment and Plan (Free Text) Assessment: 67M with no PMH seen and evaluated for left leg closed laceration with likely underlying abscess/hematoma Plan: Patient seen and examined with attending Dr. Vanessa Discussed plan in detail with Dr. Vanessa Labs, vitals, chart reviewed Negative DVT CT Left lower extremity without contrast (07/17): ill-defined lobulated collection 6.8x1.9x6.8cm. prominent reticulation and edema circumferential around wound Sutures removed, cleansed and dressed with dsd and kerlix. Patient is sensate. Wound culture left ernst 07/17/18 enterobacter cloacae sp Patient will go to the OR today at 12:30pm on 07/19/18 for incision and drainage of abscess/hematoma of left lower extremity with Dr. Vanessa Per primary "may proceed low to mod risk only risk factor age and hypertension" Patient admits to being NPO since midnight Heparin held Explained to patient at length benefits, alternatives, risks, and complications and patient agrees with surgery All questions/concerns addressed Will continue to follow patient while in house Thank you for allowing us to participate in patient's care
--- NOTE | 2018-07-19 11:39 | CP.PCM.PN ---
Subjective - Date & Time of Evaluation Date of Evaluation: 07/19/18 Time of Evaluation: 11:37 - Subjective Subjective: Podiatry progress note for Dr. Vanessa, 67 yo male with PMhx seen and evaluated preoperatively at bedside for left leg cellulitis with possible abscess versus hematoma with attending Dr. Vanessa. Patient admits to being NPO. Denies acute overnight events. Denies f/n/v/sob. Objective - Vital Signs/Intake and Output Vital Signs (last 24 hours): Temp Pulse Resp BP Pulse Ox 98.3 F 66 20 129/73 97 07/19/18 08:41 07/19/18 08:41 07/19/18 08:41 07/19/18 08:41 07/19/18 08:41 - Medications Medications: Current Medications Acetaminophen (Tylenol 325mg Tab) 650 mg PO Q6 PRN PRN Reason: Pain, moderate (4-7) Amlodipine Besylate (Norvasc) 5 mg PO DAILY [facility] Last Admin: 07/19/18 09:57 Dose: 5 mg Heparin Sodium (Porcine) (Heparin) 5,000 units SC Q8 [facility] Last Admin: 07/18/18 14:58 Dose: Not Given Vancomycin HCl 1 gm/ Sodium (Chloride) 250 mls @ 166.7 mls/hr IVPB Q12H [facility]; Protocol Last Admin: 07/19/18 04:56 Dose: 166.7 mls/hr Piperacillin Sod/Tazobactam (Sod 3.375 gm/ Sodium Chloride) 100 mls @ 200 mls/hr IVPB Q6H [facility]; Protocol Last Admin: 07/19/18 09:59 Dose: 200 mls/hr Losartan Potassium (Cozaar) 50 mg PO DAILY [facility] Last Admin: 07/19/18 09:58 Dose: 50 mg Saccharomyces Boulardii (Florastor) 250 mg PO BID [facility] Last Admin: 07/19/18 09:59 Dose: 250 mg - Labs Labs: 07/19/18 06:38 07/19/18 06:38 PT 12.9 SECONDS (9.7-12.2) H 07/19/18 06:38 INR 1.2 07/19/18 06:38 APTT 34 SECONDS (21-34) D 07/19/18 06:38 - Constitutional Appears: Well, Non-toxic, No Acute Distress - Head Exam Head Exam: ATRAUMATIC, NORMOCEPHALIC - Eye Exam Eye Exam: Normal appearance - ENT Exam ENT Exam: Mucous Membranes Moist - Extremities Exam Additional comments: dressing c/d/i, cft <3 secs x 5. - Neurological Exam Neurological Exam: Alert, Awake, Oriented x3 Assessment and Plan - Assessment and Plan (Free Text) Assessment: 67M with no PMH seen and evaluated for left leg closed laceration with likely underlying abscess/hematoma Plan: Patient seen and examined with attending Dr. Vanessa Discussed plan in detail with Dr. Vanessa Labs, vitals, chart reviewed Negative DVT CT Left lower extremity without contrast (07/17): ill-defined lobulated collection 6.8x1.9x6.8cm. prominent reticulation and edema circumferential around wound Sutures removed, cleansed and dressed with dsd and kerlix. Patient is sensate. Wound culture left ernst 07/17/18 enterobacter cloacae sp Patient will go to the OR today at 12:30pm on 07/19/18 for incision and drainage of abscess/hematoma of left lower extremity with Dr. Vanessa Per primary "may proceed low to mod risk only risk factor age and hypertension" Patient admits to being NPO since midnight Heparin held Explained to patient at length benefits, alternatives, risks, and complications and patient agrees with surgery All questions/concerns addressed Will continue to follow patient while in house Thank you for allowing us to participate in patient's care
[2018-07-19] MEDS ORDERED: Midazolam 2 MG/2 ML VIAL ONE (13:11)
[2018-07-19] MEDS ORDERED: Propofol 10 mg/ml Inj (20 ML) ONE (13:11)
[2018-07-19] MEDS ORDERED: Bupivacaine 0.25% 20 ML INJ IJ ONE (13:12)
[2018-07-19] MEDS ORDERED: Lidocaine 2% MPF (5 ml) Inj ONE ×2 (13:12→13:21)
[2018-07-19] MEDS ORDERED: HYDROmorphone 0.5 mg/0.5 ml ISec IVP PRN (13:39)
[2018-07-19] MEDS ORDERED: Oxycodone/Acetaminophen 5/325 mg Tab PO PRN ×2 (14:00)
[2018-07-19] MEDS ORDERED: Acetaminophen 650mg/20.3ml solution UD PO PRN (14:00)
--- NOTE | 2018-07-19 14:04 | PCM.SURG1 ---
Surgeon's Initial Post Op Note - Surgeon's Notes Surgeon: Dr. Israel Vanessa City Planner: Amanda Herrera [email or web address] Type of Anesthesia: IV Sedation, Local Anesthesia Administered By: Dr. garcia Pre-Operative Diagnosis: Left left hematoma versus abscess Operative Findings: see dictation. materials: 3-0 nylon. injectibles: 20 cc of .25% marcaine plain and 10 cc of 2% xylocaine plain Post-Operative Diagnosis: Left leg hematoma Operation Performed: left leg incision and drainage of hematoma Specimen/Specimens Removed: none Estimated Blood Loss: EBL {In ML}: 15 Blood Products Given: N/A Drains Used: No Drains Post-Op Condition: Good Date of Surgery/Procedure: 07/19/18 Time of Surgery/Procedure: 14:04
--- NOTE | 2018-07-19 19:50 | CP.PCM.PN ---
Subjective - Date & Time of Evaluation Date of Evaluation: 07/19/18 Time of Evaluation: 19:49 - Subjective Subjective: Medicine Progress Note - Dr Dashawn Todd's service Patient seen and examined at bedside. Per nursing no acute events overnight. Patient is doing well, offers no complaints at this time. Patient is NPO for the OR with podiatry this morning. Objective - Vital Signs/Intake and Output Vital Signs (last 24 hours): Temp Pulse Resp BP Pulse Ox 983 F H 64 16 140/70 100 07/19/18 14:57 07/19/18 14:57 07/19/18 14:57 07/19/18 14:57 07/19/18 14:27 Intake and Output: 07/19/18 07/20/18 18:59 06:59 Intake Total 1000 Balance 1000 - Medications Medications: Current Medications Acetaminophen (Tylenol 325mg Tab) 650 mg PO Q6 PRN PRN Reason: Pain, moderate (4-7) Acetaminophen (Tylenol 650mg/20.3ml Solution Ud) 650 mg PO Q6 PRN PRN Reason: Pain, Mild (1-3) Amlodipine Besylate (Norvasc) 5 mg PO DAILY [facility] Last Admin: 07/19/18 09:57 Dose: 5 mg Heparin Sodium (Porcine) (Heparin) 5,000 units SC Q8 [facility] Last Admin: 07/18/18 14:58 Dose: Not Given Hydromorphone HCl (Dilaudid) 0.5 mg IVP Q10M PRN PRN Reason: Pain, moderate (4-7) Vancomycin HCl 1 gm/ Sodium (Chloride) 250 mls @ 166.7 mls/hr IVPB Q12H [facility]; Protocol Last Admin: 07/19/18 17:12 Dose: 166.7 mls/hr Piperacillin Sod/Tazobactam (Sod 3.375 gm/ Sodium Chloride) 100 mls @ 200 mls/hr IVPB Q6H [facility]; Protocol Last Admin: 07/19/18 17:11 Dose: 200 mls/hr Losartan Potassium (Cozaar) 50 mg PO DAILY [facility] Last Admin: 07/19/18 09:58 Dose: 50 mg Oxycodone/Acetaminophen (Percocet 5/325 Mg Tab) 1 tab PO Q6H PRN PRN Reason: Pain, moderate (4-7) Stop: 07/22/18 14:01 Oxycodone/Acetaminophen (Percocet 5/325 Mg Tab) 2 tab PO Q6H PRN PRN Reason: Pain, severe (8-10) Stop: 07/22/18 14:01 Saccharomyces Donnulardii (Florastor) 250 mg PO BID [facility] Last Admin: 07/19/18 17:29 Dose: 250 mg - Labs Labs: 07/19/18 06:38 07/19/18 06:38 PT 12.9 SECONDS (9.7-12.2) H 07/19/18 06:38 INR 1.2 07/19/18 06:38 APTT 34 SECONDS (21-34) D 07/19/18 06:38 - Additional Findings Additional findings: - Constitutional Appears: Non-toxic, No Acute Distress - Eye Exam Eye Exam: EOMI - ENT Exam ENT Exam: Mucous Membranes Moist - Respiratory Exam Respiratory Exam: Clear to Ausculation Bilateral, NORMAL BREATHING PATTERN. absent: Rales, Rhonchi, Wheezes - Cardiovascular Exam Cardiovascular Exam: REGULAR RHYTHM, +S1, +S2. absent: Gallop, Rubs, Murmur - GI/Abdominal Exam GI & Abdominal Exam: Soft, Normal Bowel Sounds. absent: Distended, Firm, Guarding, Tenderness, Rebound - Extremities Exam Extremities Exam: Normal Capillary Refill. absent: Calf Tenderness Left lower extremity: Dressing is c/d/i, able to move toes, sensation intact; area of ecchymosis extends up to posterior left thigh, marked with pen - Back Exam Back Exam: absent: CVA tenderness (L), CVA tenderness (R) - Neurological Exam Neurological Exam: Alert, Awake, CN II-XII Intact, Oriented x3 - Psychiatric Exam Psychiatric exam: Normal Affect, Normal Mood Assessment and Plan - Assessment and Plan (Free Text) Assessment: Patient is a 67 year old male with PMH HTN admitted for cellulitis vs. phlegmon vs. abscess of poorly healing L ernst laceration. Plan: Left Lower extremity wound -Stable, afebrile, no leukocytosis -Poorly healing laceration refractory to outpatient treatment -Patient going to the OR today (07/19/18) with podiatry for I+D of left leg hematoma -Blood Cx (07/17): no growth x 48 hours -Wound Cx (07/17): enterobacter cloace sp, sensitivities reviewed -Antibiotics: Zosyn 3.375gm IVPB q6 (started 07/17) and Vanc 1gm IVPB q12 (started 07/17) -Continue Florastor 250mg PO BID -Percocet 1 tab PO Q6H prn moderate pain, Perococet 2 tabs PO Q6H prn severe pain -Tylenol 650mg po q6 prn -Podiatry consulted, Dr. Vanessa, help appreciated -Infectious disease on consult, Dr Hayes, help appreciated -Physical Therapy recommending home with services Imaging: -LE Doppler (07/17): neg for DVT -CT L LE without contrast (07/17): ill-defined lobulated collection 6.8x1. 9x6.8cm. prominent reticulation and edema circumferential around wound; consider hematoma vs developing phlegmon vs abscess (see full report) Hypertension - Losartan 50mg PO daily, Norvasc 5mg PO daily - Monitor vitals GI/DVT PPx - DVT: Heparin 5000u SC q8 (held) - No GI ppx indicated at this time Plan discussed with Dr Dashawn Kennedy DO PGY-2
--- NOTE | 2018-07-19 20:16 | CP.PCM.CON ---
History of Present Illness - History of Present Illness History of Present Illness: dictated Past Patient History - Tetanus Immunizations Tetanus Immunization: Up to Date - Past Medical History & Family History Past Medical History?: No - Past Social History Smoking Status: Never Smoked Alcohol: None Drugs: Denies Home Situation {Lives}: Alone - CARDIAC Hx Hypertension: Yes - PULMONARY Hx Respiratory Disorders: No - NEUROLOGICAL Hx Neurological Disorder: No - HEENT Hx HEENT Problems: No - RENAL Hx Chronic Kidney Disease: No - ENDOCRINE/METABOLIC Hx Endocrine Disorders: No - HEMATOLOGICAL/ONCOLOGICAL Hx Blood Disorders: No - INTEGUMENTARY Hx Dermatological Problems: No - MUSCULOSKELETAL/RHEUMATOLOGICAL Hx Fractures: Yes (LEFT CLAVICAL 35 YEARS AGO) - GASTROINTESTINAL Hx Gastrointestinal Disorders: No - GENITOURINARY/GYNECOLOGICAL Hx Genitourinary Disorders: Yes Hx Prostate Problems: Yes (ELEVATED PSA) - PSYCHIATRIC Hx Substance Use: No - SURGICAL HISTORY Hx Surgeries: Yes Hx Orthopedic Surgery: Yes (REPAIR FRACTURED CLAVICAL) - ANESTHESIA Hx Anesthesia: Yes Hx Anesthesia Reactions: No Meds Allergies/Adverse Reactions: Allergies Allergy/AdvReac Type Severity Reaction Status Date / Time No Known Allergies Allergy Verified 07/17/18 10:28 - Medications Medications: Current Medications Acetaminophen (Tylenol 325mg Tab) 650 mg PO Q6 PRN PRN Reason: Pain, moderate (4-7) Acetaminophen (Tylenol 650mg/20.3ml Solution Ud) 650 mg PO Q6 PRN PRN Reason: Pain, Mild (1-3) Amlodipine Besylate (Norvasc) 5 mg PO DAILY [facility] Last Admin: 07/19/18 09:57 Dose: 5 mg Heparin Sodium (Porcine) (Heparin) 5,000 units SC Q8 [facility] Last Admin: 07/18/18 14:58 Dose: Not Given Hydromorphone HCl (Dilaudid) 0.5 mg IVP Q10M PRN PRN Reason: Pain, moderate (4-7) Vancomycin HCl 1 gm/ Sodium (Chloride) 250 mls @ 166.7 mls/hr IVPB Q12H [facility]; Protocol Last Admin: 07/19/18 17:12 Dose: 166.7 mls/hr Piperacillin Sod/Tazobactam (Sod 3.375 gm/ Sodium Chloride) 100 mls @ 200 mls/hr IVPB Q6H [facility]; Protocol Last Admin: 07/19/18 17:11 Dose: 200 mls/hr Losartan Potassium (Cozaar) 50 mg PO DAILY [facility] Last Admin: 07/19/18 09:58 Dose: 50 mg Oxycodone/Acetaminophen (Percocet 5/325 Mg Tab) 1 tab PO Q6H PRN PRN Reason: Pain, moderate (4-7) Stop: 07/22/18 14:01 Oxycodone/Acetaminophen (Percocet 5/325 Mg Tab) 2 tab PO Q6H PRN PRN Reason: Pain, severe (8-10) Stop: 07/22/18 14:01 Saccharomyces Boulardii (Florastor) 250 mg PO BID [facility] Last Admin: 07/19/18 17:29 Dose: 250 mg Results - Vital Signs Recent Vital Signs: Last Vital Signs Temp 983 F H 07/19/18 14:57 Pulse 64 07/19/18 14:57 Resp 16 07/19/18 14:57 BP 140/70 07/19/18 14:57 Pulse Ox 100 07/19/18 14:27 - Labs Result Diagrams: 07/19/18 06:38 07/19/18 06:38 Labs: Laboratory Results - last 24 hr 07/19/18 07/19/18 07/19/18 06:38 06:38 06:38 WBC 10.0 RBC 4.00 L Hgb 11.8 L Hct 36.0 MCV 89.9 MCH 29.5 MCHC 32.8 L RDW 14.2 Plt Count 383 MPV 8.0 Neut % (Auto) 68.7 Lymph % (Auto) 17.1 L [place] % (Auto) 10.4 H Eos % (Auto) 3.1 Baso % (Auto) 0.7 Neut # (Auto) 6.8 Lymph # (Auto) 1.7 [place] # (Auto) 1.0 H Eos # (Auto) 0.3 Baso # (Auto) 0.1 PT 12.9 H INR 1.2 APTT 34 D Sodium 137 Potassium 4.0 Chloride 104 Carbon Dioxide 29 Anion Gap 9 L BUN 14 Creatinine 0.9 Est GFR ( Amer) > 60 Est GFR (Non-Af Amer) > 60 Random Glucose 110 Calcium 8.4 L
[2018-07-19] MEDS: Ciprofloxacin 400mg/200ml D5W 400 MG/200 ML BAG IVPB SCH (21:35)
--- NOTE | 2018-07-20 07:01 | CON ---
DATE: 07/19/2018 INFECTIOUS DISEASE CONSULT REQUESTED BY: Cong Grier MD HISTORY OF PRESENT ILLNESS: This patient, Ronal, is a 67-year-old male. He has history of hypertension. He said on 07/11/2018, he tripped on the pavement and landed on a sharp metal object, and he received tetanus booster at Urgent Care, and he was told to go to the emergency room to get sutures to the laceration. Hence, he came to the ED, and they recommended to come for the sutures, and he had 12 sutures after expressing pus and hematoma. On 07/13/2018, he returned to the ED with redness on the wound, getting warmer. He was discharged on cephalexin and bacitracin, and he was wrapping his wound. He was taking shower. He was washing the wound, and he says he was compliant, but he tells me that when he went home, he fell after looking at his foot which was appearing red, and so he came again, and he is admitted now. Today, he went to the OR, and they drained a hematoma from the left leg and he is feeling little better. He denies any pain at this time. However, his wound has grown Enterobacter from the past. As he is on IV antibiotics also, I am asked to evaluate. PAST MEDICAL HISTORY: Significant for hypertension. ALLERGIES: HE IS NOT ALLERGIC TO ANY MEDICINES. SURGICAL HISTORY: Clavicle fracture repair 35 years ago, and now, he had an I and D on the left leg which postoperative diagnosis as hematoma, was done by Dr. Vanessa. FAMILY HISTORY: Mother has diabetes mellitus, has no coronary artery disease. SOCIAL HISTORY: Denies alcohol, drug abuse, or tobacco abuse. He works at a [employer] service, and he lives alone. REVIEW OF SYSTEM: He denied any other symptoms of fever, chills, or headache. He did complain he had left leg pain for which he came. There is no ear, nose, throat symptoms. No respiratory symptoms. No GI symptoms. No symptoms. He just came with joint selling. He has no neurological problems. No psych issues. No endocrine problems. He does not take any medicine regularly, and he denies any bleeding disorders. He did get a tetanus shot from the Urgent Care, and his past medical history is only significant for the left clavicle fracture 35 years ago. PHYSICAL EXAMINATION: VITALS: T-max is 98.3 right now, pulse 64, blood pressure 140/70, respirations are 16. GENERAL: He is alert, oriented x3. He is hungry. He is trying to eat postop. HEENT: Head is atraumatic, normocephalic. Pupils are reacting to light. Tongue is dry. NECK: Supple. JVP is flat. LUNGS: Clear to auscultation. No crackles or rales present. HEART: S1, S2 are regular. No murmurs appreciated. ABDOMEN: Soft, nontender. No guarding, no rigidity present. EXTREMITIES: Has a dressing at this time from the OR. Right leg is unremarkable. LABORATORY DATA: Labs are noted. White count is 10, hemoglobin 11.8, hematocrit 36, platelet count is 383. OTHER LABORATORIES: Sodium 137, potassium 4, chloride 104, CO2 is 29, anion gap is 9, creatinine is 0.9, and the wound culture which was done on 07/17/2018. Blood cultures are negative, showed that it is sensitive to Cipro and to Zosyn, and at this time, the patient is on medications. He is on acetaminophen, heparin, hydromorphone, losartan, oxycodone. He is on Zosyn every 6 hours, and he is on vancomycin every 12 hours. ASSESSMENT AND PLAN: So, at this time, he had Enterobacter which was sensitive to Cipro. Even Zosyn should be working at this time. I will put him on Cipro and vancomycin for now, and we will follow. HE IS NOT ALLERGIC TO ANY MEDICINE. So, we will follow. Blanca Hayes MD
[2018-07-20 08:11] LABS: BASO # 0.1 K/uL (0.0-0.2); BASO % 0.7 % (0.0-2.0); EOS # 0.4 K/uL (0.0-0.7); EOS % 3.9 % (0.0-4.0); HEMOGLOBIN 11.5 g/dL (12.0-18.0); LYMPH # 1.5 K/uL (1.0-4.3); LYMPH % 15.4 % (20.0-40.0); MEAN CELL VOLUME 89.5 fL (80.0-94.0); MEAN CORPUSCULAR HEMOGLOBIN 30.4 pg (27.0-31.0); MEAN PLATELET VOLUME 8.1 fL (7.2-11.7); MONO # 1.1 K/uL (0.0-0.8); MONO % 10.7 % (0.0-10.0); NEUT % 69.3 % (50.0-75.0); RBC 3.77 Mil/uL (4.40-5.90); RED CELL DISTRIBUTION WIDTH 13.9 % (11.5-14.5); WHITE BLOOD COUNT 10.1 K/uL (4.8-10.8)
[2018-07-20 08:26] LABS: ALB/GLOB RATIO 1.1 (1.0-2.1); ALBUMIN 3.5 g/dL (3.5-5.0); ALT/SGPT 23 U/L (21-72); AST/SGOT 24 U/L (17-59); BLOOD UREA NITROGEN 14 mg/dL (9-20); CALCIUM 8.6 mg/dl (8.6-10.4); GFR NON-AFRICAN AMERICAN > 60
[2018-07-20] MEDS: Ciprofloxacin 400mg/200ml D5W 400 MG/200 ML BAG IVPB SCH ×2 (09:45→20:16)
[2018-07-20] MEDS: Saccharomyces Boulardi 250 mg Cap PO SCH ×2 (09:46→17:48)
--- NOTE | 2018-07-20 11:25 | CP.PCM.PN ---
Subjective - Date & Time of Evaluation Date of Evaluation: 07/20/18 Time of Evaluation: 11:23 - Subjective Subjective: Podiatry progress note for Dr. Vanessa, 67 yo male with PMhx seen and evaluated preoperatively at bedside 1 day s/p left leg incision and drainage of hematoma in the leg. Minimal pain Denies acute overnight events. Denies f/n/v/sob. Objective - Vital Signs/Intake and Output Vital Signs (last 24 hours): Temp Pulse Resp BP Pulse Ox 97.9 F 68 20 130/71 94 L 07/20/18 09:22 07/20/18 09:22 07/20/18 09:22 07/20/18 09:22 07/20/18 09:22 Intake and Output: 07/20/18 07/20/18 06:59 18:59 Intake Total 1400 Output Total 200 Balance 1200 - Medications Medications: Current Medications Acetaminophen (Tylenol 325mg Tab) 650 mg PO Q6 PRN PRN Reason: Pain, moderate (4-7) Acetaminophen (Tylenol 650mg/20.3ml Solution Ud) 650 mg PO Q6 PRN PRN Reason: Pain, Mild (1-3) Amlodipine Besylate (Norvasc) 5 mg PO DAILY [facility] Last Admin: 07/20/18 09:45 Dose: 5 mg Heparin Sodium (Porcine) (Heparin) 5,000 units SC Q8 [facility] Last Admin: 07/18/18 14:58 Dose: Not Given Hydromorphone HCl (Dilaudid) 0.5 mg IVP Q10M PRN PRN Reason: Pain, moderate (4-7) Vancomycin HCl 1 gm/ Sodium (Chloride) 250 mls @ 166.7 mls/hr IVPB Q12H [facility]; Protocol Last Admin: 07/20/18 04:01 Dose: 166.7 mls/hr Ciprofloxacin (Cipro 400mg/200ml Dsw) 400 mg in 200 mls @ 133 mls/hr IVPB Q12H [facility]; Protocol Last Admin: 07/20/18 09:45 Dose: 133 mls/hr Losartan Potassium (Cozaar) 50 mg PO DAILY [facility] Last Admin: 07/20/18 09:45 Dose: 50 mg Oxycodone/Acetaminophen (Percocet 5/325 Mg Tab) 1 tab PO Q6H PRN PRN Reason: Pain, moderate (4-7) Stop: 07/22/18 14:01 Oxycodone/Acetaminophen (Percocet 5/325 Mg Tab) 2 tab PO Q6H PRN PRN Reason: Pain, severe (8-10) Stop: 07/22/18 14:01 Saccharomyces Bomaurodii (Florastor) 250 mg PO BID [facility] Last Admin: 07/20/18 09:46 Dose: 250 mg - Labs Labs: 07/20/18 07:50 07/20/18 07:50 PT 12.9 SECONDS (9.7-12.2) H 07/19/18 06:38 INR 1.2 07/19/18 06:38 APTT 34 SECONDS (21-34) D 07/19/18 06:38 - Constitutional Appears: Well, Non-toxic, No Acute Distress - Head Exam Head Exam: NORMOCEPHALIC - Eye Exam Eye Exam: Normal appearance Pupil Exam: NORMAL ACCOMODATION - ENT Exam ENT Exam: Mucous Membranes Moist - Respiratory Exam Respiratory Exam: NORMAL BREATHING PATTERN - Cardiovascular Exam Cardiovascular Exam: REGULAR RHYTHM - Extremities Exam Additional comments: dressing clean dry and intact, CFT <3 secs x 5 Packing left intact and inner layer of dressing left intact. - Neurological Exam Neurological Exam: Alert, Awake, Oriented x3 Assessment and Plan - Assessment and Plan (Free Text) Assessment: 67M with no PMH seen and evaluated for left leg closed laceration with likely underlying abscess/hematoma Plan: Patient seen and examined with attending Dr. Vanessa Discussed plan in detail with Dr. Vanessa Labs, vitals, chart reviewed Negative DVT CT Left lower extremity without contrast (07/17): ill-defined lobulated collection 6.8x1.9x6.8cm. prominent reticulation and edema circumferential around wound Wound culture left ernst 07/17/18 enterobacter cloacae patient's care Left leg dressed with kerlix and coban Podiatry will continue to follow the patient
--- NOTE | 2018-07-20 13:48 | CP.PCM.PN ---
Subjective - Date & Time of Evaluation Date of Evaluation: 07/20/18 Time of Evaluation: 13:46 - Subjective Subjective: Medicine Progress Note - Dr Dashawn Todd's Service Patient seen and examined at bedside. Per nursing no acute events overnight. Patient is doing well, reports having some pain in the left lower leg. Tolerating diet. Offers no other complaints at this time. Objective - Vital Signs/Intake and Output Vital Signs (last 24 hours): Temp Pulse Resp BP Pulse Ox 97.9 F 68 20 130/71 94 L 07/20/18 09:22 07/20/18 09:22 07/20/18 09:22 07/20/18 09:22 07/20/18 09:22 Intake and Output: 07/20/18 07/20/18 06:59 18:59 Intake Total 1400 Output Total 200 Balance 1200 - Medications Medications: Current Medications Acetaminophen (Tylenol 325mg Tab) 650 mg PO Q6 PRN PRN Reason: Pain, moderate (4-7) Acetaminophen (Tylenol 650mg/20.3ml Solution Ud) 650 mg PO Q6 PRN PRN Reason: Pain, Mild (1-3) Amlodipine Besylate (Norvasc) 5 mg PO DAILY [facility] Last Admin: 07/20/18 09:45 Dose: 5 mg Heparin Sodium (Porcine) (Heparin) 5,000 units SC Q8 [facility] Last Admin: 07/18/18 14:58 Dose: Not Given Hydromorphone HCl (Dilaudid) 0.5 mg IVP Q10M PRN PRN Reason: Pain, moderate (4-7) Vancomycin HCl 1 gm/ Sodium (Chloride) 250 mls @ 166.7 mls/hr IVPB Q12H [facility]; Protocol Last Admin: 07/20/18 04:01 Dose: 166.7 mls/hr Ciprofloxacin (Cipro 400mg/200ml Dsw) 400 mg in 200 mls @ 133 mls/hr IVPB Q12H [facility]; Protocol Last Admin: 07/20/18 09:45 Dose: 133 mls/hr Losartan Potassium (Cozaar) 50 mg PO DAILY [facility] Last Admin: 07/20/18 09:45 Dose: 50 mg Oxycodone/Acetaminophen (Percocet 5/325 Mg Tab) 1 tab PO Q6H PRN PRN Reason: Pain, moderate (4-7) Stop: 07/22/18 14:01 Oxycodone/Acetaminophen (Percocet 5/325 Mg Tab) 2 tab PO Q6H PRN PRN Reason: Pain, severe (8-10) Stop: 07/22/18 14:01 Saccharomyces Braddii (Florastor) 250 mg PO BID [facility] Last Admin: 07/20/18 09:46 Dose: 250 mg - Labs Labs: 07/20/18 07:50 07/20/18 07:50 PT 12.9 SECONDS (9.7-12.2) H 07/19/18 06:38 INR 1.2 07/19/18 06:38 APTT 34 SECONDS (21-34) D 07/19/18 06:38 - Constitutional Appears: Well, Non-toxic, No Acute Distress - Head Exam Head Exam: ATRAUMATIC, NORMAL INSPECTION, NORMOCEPHALIC - Eye Exam Eye Exam: EOMI, Normal appearance - ENT Exam ENT Exam: Mucous Membranes Moist - Respiratory Exam Respiratory Exam: Clear to Ausculation Bilateral, NORMAL BREATHING PATTERN. absent: Rales, Rhonchi, Wheezes - Cardiovascular Exam Cardiovascular Exam: REGULAR RHYTHM, +S1, +S2 - GI/Abdominal Exam GI & Abdominal Exam: Soft, Normal Bowel Sounds. absent: Guarding, Rigid, Tenderness - Extremities Exam Additional comments: Left lower extremity: JUSTIN bandage intact, +ankle edema, able to move toes, sensation intact; area of ecchymosis extends up to posterior left thigh, marked with pen (irregularly shaped laceration mid anterior tibial region, suture and packing in place, no surrounding erythema or tenderness to palpation, + non- pitting leg edema - per Dr Dashawn Todd's exam) - Back Exam Back Exam: NORMAL INSPECTION - Neurological Exam Neurological Exam: Alert, Awake, Oriented x3 - Psychiatric Exam Psychiatric exam: Normal Affect, Normal Mood - Skin Skin Exam: Dry, Normal Color, Warm Assessment and Plan - Assessment and Plan (Free Text) Assessment: Patient is a 67 year old male with PMH HTN admitted for cellulitis vs. phlegmon vs. abscess of poorly healing L ernst laceration. Plan: Left Lower extremity Wound/Cellulitis -Stable, afebrile, no leukocytosis -Patient had a low grade temperature of 100.1 last night -Poorly healing laceration refractory to outpatient treatment -Patient s/p I+D of left leg hematoma with podiatry POD#1 -Blood Cx (07/17): no growth x 3 days -Wound Cx (07/17): enterobacter cloace sp, sensitivities reviewed -Antibiotics: Ciprofloxacin 400mg Q12 (started 07/19/18) and Vanc 1gm IVPB q12 (started 07/17) -Discontinued Zosyn 3.375gm IVPB q6 (started 07/17-07/19/18) -Continue Florastor 250mg PO BID -Percocet 1 tab PO Q6H prn moderate pain, Perococet 2 tabs PO Q6H prn severe pain -Tylenol 650mg po q6 prn -Keep left leg elevated for edema -Podiatry consulted, Dr. Vanessa, help appreciated -Infectious disease on consult, Dr Hayes, help appreciated -Physical Therapy recommending home with services Imaging: -LE Doppler (07/17): neg for DVT -CT L LE without contrast (07/17): ill-defined lobulated collection 6.8x1.9x6.8cm. prominent reticulation and edema circumferential around wound; consider hematoma vs developing phlegmon vs abscess (see full report) Hypertension - Losartan 50mg PO daily, Norvasc 5mg PO daily - Monitor vitals GI/DVT PPx - DVT: Heparin 5000u SC q8 (held) - No GI ppx indicated at this time Plan discussed with Dr Dashawn Kennedy DO PGY-2
--- NOTE | 2018-07-20 14:00 | CP.PCM.PN ---
Subjective - Date & Time of Evaluation Date of Evaluation: 07/20/18 Time of Evaluation: 13:45 - Subjective Subjective: dictated Objective - Vital Signs/Intake and Output Vital Signs (last 24 hours): Temp Pulse Resp BP Pulse Ox 97.9 F 68 20 130/71 94 L 07/20/18 09:22 07/20/18 09:22 07/20/18 09:22 07/20/18 09:22 07/20/18 09:22 Intake and Output: 07/20/18 07/20/18 06:59 18:59 Intake Total 1400 Output Total 200 Balance 1200 - Medications Medications: Current Medications Acetaminophen (Tylenol 325mg Tab) 650 mg PO Q6 PRN PRN Reason: Pain, moderate (4-7) Acetaminophen (Tylenol 650mg/20.3ml Solution Ud) 650 mg PO Q6 PRN PRN Reason: Pain, Mild (1-3) Amlodipine Besylate (Norvasc) 5 mg PO DAILY [facility] Last Admin: 07/20/18 09:45 Dose: 5 mg Heparin Sodium (Porcine) (Heparin) 5,000 units SC Q8 [facility] Last Admin: 07/18/18 14:58 Dose: Not Given Vancomycin HCl 1 gm/ Sodium (Chloride) 250 mls @ 166.7 mls/hr IVPB Q12H [facility]; Protocol Last Admin: 07/20/18 04:01 Dose: 166.7 mls/hr Ciprofloxacin (Cipro 400mg/200ml Dsw) 400 mg in 200 mls @ 133 mls/hr IVPB Q12H [facility]; Protocol Last Admin: 07/20/18 09:45 Dose: 133 mls/hr Losartan Potassium (Cozaar) 50 mg PO DAILY [facility] Last Admin: 07/20/18 09:45 Dose: 50 mg Oxycodone/Acetaminophen (Percocet 5/325 Mg Tab) 1 tab PO Q6H PRN PRN Reason: Pain, moderate (4-7) Stop: 07/22/18 14:01 Oxycodone/Acetaminophen (Percocet 5/325 Mg Tab) 2 tab PO Q6H PRN PRN Reason: Pain, severe (8-10) Stop: 07/22/18 14:01 Saccharomyces Boulardii (Florastor) 250 mg PO BID [facility] Last Admin: 07/20/18 09:46 Dose: 250 mg - Labs Labs: 07/20/18 07:50 07/20/18 07:50 PT 12.9 SECONDS (9.7-12.2) H 07/19/18 06:38 INR 1.2 07/19/18 06:38 APTT 34 SECONDS (21-34) D 07/19/18 06:38
--- NOTE | 2018-07-20 21:58 | PN ---
DATE: 07/20/2018 SUBJECTIVE: The patient was seen today. He was feeling little better. He did have some pain in the left leg as they had an Unna boot on the left leg and left foot appeared with swelling, but no redness seen on the thing. PHYSICAL EXAMINATION: VITAL SIGNS: T-max is 97.9, pulse 68, blood pressure 130/71, respirations are 20. HEENT: Head is atraumatic and normocephalic. NECK: Supple. LUNGS: Clear. HEART: S1, S2 is regular. ABDOMEN: Soft, nontender. No guarding, no rigidity present. EXTREMITIES: Left leg has dressing where they evacuated hematoma and foot remains with the swelling. Right foot is unremarkable. LABORATORY DATA: White count is 10.1, BUN is 14, creatinine 0.8. ASSESSMENT AND PLAN: The previous culture came out positive for Enterobacter which is sensitive to Cipro and I have left him on Cipro and vancomycin at this time and we will follow with the software systems analyst and the patient had surgery on 07/19/2018 which showed postoperative left leg hematoma was drained, which was probably infected and grew Enterobacter. We will follow and if they took any operating room culture, that may be pending at this time. Blanca Hayes MD
[2018-07-21] MEDS: Vancomycin 1 gm/NS 200 ml 1 GM/200 ML BAG IVPB SCH ×2 (03:49→17:27)
[2018-07-21 07:33] LABS: BASO # 0.1 K/uL (0.0-0.2); BASO % 0.8 % (0.0-2.0); EOS # 0.6 K/uL (0.0-0.7); EOS % 7.9 % (0.0-4.0); HEMOGLOBIN 11.6 g/dL (12.0-18.0); LYMPH # 1.6 K/uL (1.0-4.3); LYMPH % 19.8 % (20.0-40.0); MEAN CELL VOLUME 89.4 fL (80.0-94.0); MEAN CORPUSCULAR HEMOGLOBIN 30.5 pg (27.0-31.0); MEAN CORPUSCULAR HGB CONC 34.1 g/dL (33.0-37.0); MONO # 0.8 K/uL (0.0-0.8); MONO % 9.9 % (0.0-10.0); NEUT % 61.6 % (50.0-75.0); RBC 3.8 Mil/uL (4.40-5.90); RED CELL DISTRIBUTION WIDTH 13.7 % (11.5-14.5); WHITE BLOOD COUNT 8.2 K/uL (4.8-10.8)
[2018-07-21] MEDS: Ciprofloxacin 400mg/200ml D5W 400 MG/200 ML BAG IVPB SCH ×2 (07:51→19:32)
[2018-07-21 07:56] LABS: ALB/GLOB RATIO 1.1 (1.0-2.1); ALBUMIN 3.6 g/dL (3.5-5.0); ALT/SGPT 28 U/L (21-72); AST/SGOT 28 U/L (17-59); BLOOD UREA NITROGEN 16 mg/dL (9-20); CALCIUM 8.5 mg/dl (8.6-10.4); GFR NON-AFRICAN AMERICAN > 60
--- NOTE | 2018-07-21 08:50 | CP.PCM.PN ---
Subjective - Date & Time of Evaluation Date of Evaluation: 07/21/18 Time of Evaluation: 08:47 - Subjective Subjective: PGY-[address] Todd's service Patient seen and examined at bedside. Patient reports mild pain in left leg at times. Patient states that is able to ambulate without difficulty. Patient denies fevers, chills, chest pain, sob, n/v, constipation or diarrhea, and dysuria. Objective - Vital Signs/Intake and Output Vital Signs (last 24 hours): Temp Pulse Resp BP Pulse Ox 98.2 F 65 20 114/72 98 07/21/18 07:00 07/21/18 07:00 07/21/18 07:00 07/21/18 07:00 07/21/18 07:00 Intake and Output: 07/21/18 07/21/18 06:59 18:59 Intake Total 600 Output Total 1200 Balance -600 - Medications Medications: Current Medications Acetaminophen (Tylenol 325mg Tab) 650 mg PO Q6 PRN PRN Reason: Pain, moderate (4-7) Acetaminophen (Tylenol 650mg/20.3ml Solution Ud) 650 mg PO Q6 PRN PRN Reason: Pain, Mild (1-3) Amlodipine Besylate (Norvasc) 5 mg PO DAILY [facility] Last Admin: 07/20/18 09:45 Dose: 5 mg Heparin Sodium (Porcine) (Heparin) 5,000 units SC Q8 [facility] Last Admin: 07/18/18 14:58 Dose: Not Given Ciprofloxacin (Cipro 400mg/200ml Dsw) 400 mg in 200 mls @ 133 mls/hr IVPB Q12H [facility]; Protocol Last Admin: 07/21/18 07:51 Dose: 133 mls/hr Vancomycin/Sodium Chloride (Vancomycin 1 Gm/Ns 200 Ml) 1 gm in 200 mls @ 133.333 mls/hr IVPB Q12H [facility] Stop: 07/26/18 04:31 Last Admin: 07/21/18 03:49 Dose: 133.333 mls/hr Losartan Potassium (Cozaar) 50 mg PO DAILY [facility] Last Admin: 07/20/18 09:45 Dose: 50 mg Oxycodone/Acetaminophen (Percocet 5/325 Mg Tab) 1 tab PO Q6H PRN PRN Reason: Pain, moderate (4-7) Stop: 07/22/18 14:01 Oxycodone/Acetaminophen (Percocet 5/325 Mg Tab) 2 tab PO Q6H PRN PRN Reason: Pain, severe (8-10) Stop: 07/22/18 14:01 Saccharomyces Braddii (Florastor) 250 mg PO BID [facility] Last Admin: 07/20/18 17:48 Dose: 250 mg - Labs Labs: 07/21/18 07:07 07/21/18 07:07 PT 12.9 SECONDS (9.7-12.2) H 07/19/18 06:38 INR 1.2 07/19/18 06:38 APTT 34 SECONDS (21-34) D 07/19/18 06:38 - Constitutional Appears: Non-toxic, No Acute Distress - Head Exam Head Exam: NORMAL INSPECTION, NORMOCEPHALIC - Eye Exam Eye Exam: EOMI, Normal appearance. absent: Nystagmus, Scleral icterus - Respiratory Exam Respiratory Exam: Clear to Ausculation Bilateral, NORMAL BREATHING PATTERN. absent: Decreased Breath Sounds, Rales, Rhonchi, Wheezes - Cardiovascular Exam Cardiovascular Exam: REGULAR RHYTHM, +S1, +S2. absent: Tachycardia - GI/Abdominal Exam GI & Abdominal Exam: Soft, Normal Bowel Sounds. absent: Distended, Firm, Guarding, Rigid, Tenderness - Extremities Exam Extremities Exam: absent: Normal Inspection, Pedal Edema Additional comments: left leg weston bandage in calf region ecchymosis travels from posterior thigh to above popliteal region; demarcated with pen; regressing from initial demarcation - Neurological Exam Neurological Exam: Alert, Awake, Oriented x3 - Psychiatric Exam Psychiatric exam: Normal Affect, Normal Mood - Skin Skin Exam: Intact, Normal Color Assessment and Plan - Assessment and Plan (Free Text) Assessment: Patient is a 67 yo male w/ PMH of HTN admitted to hospital for left leg cellulitis. CT of LE showed left leg hematoma. s/p I&D with podiatry on 07-19-18. ID following for antibiotic management. Wound cx positive for enterobacter clocace. Plan: Left Leg Cellulitis Podiatry Consult- Dr. Vanessa- recommendations as below ID Consult- Dr. Hayes- recommendations as below 07/17/18 CT LE- prominent reticulation and edema as well as fluid w/in the adjacent subq tissues circumferentially; may represent hematoma +wound cx for enterobacter clocae s/p I&D for hematoma on 07/19 Vancomycin 1gm IVPB q12h Ciprofloxacin 400mg IVPB q12h no leukocytosis noted; afebrile Oxycodone 2 tab po q6h prn Tylenol PRN HTN Norvasc 5mg po daily Losartan 50mg po daily GI ppx: Floarstor DVT ppx: Heparin on hold- restart pending podiatry HHD Ila Nugent PGY-1 Case d/w Dr. Todd
--- NOTE | 2018-07-21 09:54 | VASCLAB ---
Date of service: 07/17/2018 PROCEDURE: Left Lower Extremity Venous Duplex Exam. HISTORY: leg swelling. eval for hematoma, dvt PRIORS: None. TECHNIQUE: Left common femoral, femoral, popliteal and posterior tibial, peroneal and great saphenous veins were evaluated. Flow was assessed with color Doppler, compressibility, assessment of phasic flow and augmentation response. Report prepared by Bon Miles, LESLIE, RVT FINDINGS: LEFT: 1. Common Femoral Vein: 1.1. Compressibility - Fully compressible: Thrombus - None : Flow - Phasic: Augmentation -Normal: Reflux - None. 2. Femoral Vein: 2.1. Compressibility - Fully compressible: Thrombus - None: Flow - Phasic: Augmentation -Normal: Reflux - None. 3. Popliteal Vein: 3.1. Compressibility - Fully compressible: Thrombus - None: Flow - Phasic: Augmentation -Normal: Reflux - None. 4. Posterior Tibial Vein: 4.1. Compressibility - Fully compressible: Thrombus - None: Flow - Phasic: Augmentation -Normal: Reflux - None. 5. Peroneal Vein: 5.1. Compressibility - Fully compressible: Thrombus - None: Flow - Phasic: Augmentation -Normal: Reflux - None. 6. Great Saphenous Vein: 6.1. Compressibility - Fully compressible: Thrombus - None: Flow - Phasic: Augmentation - Normal: Reflux - None. OTHER FINDINGS: IMPRESSION: No evidence of deep or superficial vein thrombosis of the left lower extremity with excellent venous flow. Normal valve function noted of the left side. Normal venous flow noted in the right common femoral vein.
[2018-07-21] MEDS: Saccharomyces Boulardi 250 mg Cap PO SCH ×2 (10:39→17:40)
--- NOTE | 2018-07-21 18:18 | CP.PCM.PN ---
Subjective - Date & Time of Evaluation Date of Evaluation: 07/21/18 Time of Evaluation: 18:00 - Subjective Subjective: Podiatry Progress Note- Dr. Vanessa 67M seen and evaluated 2 days s/p incision and drainage of hematoma in the left leg. Patient is seen resting comfortably in bed, in NAD, and AA0x3. Patient denies acute overnight events. Reports improved pain to left lower extremity. Rates very low pain. Reports has been walking around the hospital as instructed. Denies f/n/v/sob/cp/chills. Dressing to the left lower extremity is clean, dry, and intact. No strikethrough Objective - Vital Signs/Intake and Output Vital Signs (last 24 hours): Temp Pulse Resp BP Pulse Ox 98.1 F 65 20 146/76 98 07/21/18 15:53 07/21/18 15:53 07/21/18 15:53 07/21/18 15:53 07/21/18 15:53 Intake and Output: 07/21/18 07/21/18 06:59 18:59 Intake Total 600 450 Output Total 1200 900 Balance -600 -450 - Medications Medications: Current Medications Acetaminophen (Tylenol 325mg Tab) 650 mg PO Q6 PRN PRN Reason: Pain, moderate (4-7) Acetaminophen (Tylenol 650mg/20.3ml Solution Ud) 650 mg PO Q6 PRN PRN Reason: Pain, Mild (1-3) Amlodipine Besylate (Norvasc) 5 mg PO DAILY [facility] Last Admin: 07/21/18 10:39 Dose: 5 mg Heparin Sodium (Porcine) (Heparin) 5,000 units SC Q8 [facility] Last Admin: 07/18/18 14:58 Dose: Not Given Ciprofloxacin (Cipro 400mg/200ml Dsw) 400 mg in 200 mls @ 133 mls/hr IVPB Q12H [facility]; Protocol Last Admin: 07/21/18 07:51 Dose: 133 mls/hr Vancomycin/Sodium Chloride (Vancomycin 1 Gm/Ns 200 Ml) 1 gm in 200 mls @ 133.333 mls/hr IVPB Q12H [facility] Stop: 07/26/18 04:31 Last Admin: 07/21/18 17:27 Dose: 133.333 mls/hr Losartan Potassium (Cozaar) 50 mg PO DAILY [facility] Last Admin: 07/21/18 10:39 Dose: 50 mg Saccharomyces Boulardii (Florastor) 250 mg PO BID [facility] Last Admin: 07/21/18 17:40 Dose: 250 mg - Labs Labs: 07/21/18 07:07 07/21/18 07:07 PT 12.9 SECONDS (9.7-12.2) H 07/19/18 06:38 INR 1.2 07/19/18 06:38 APTT 34 SECONDS (21-34) D 07/19/18 06:38 - Constitutional Appears: Well, Non-toxic, No Acute Distress - Extremities Exam Extremities Exam: absent: Calf Tenderness Additional comments: Dressing clean dry and intact, CFT <3 secs x 5 Temperature gradient WNL Mild pain with palpation to the anterior leg Packing left intact and inner layer of dressing left intact. Assessment and Plan - Assessment and Plan (Free Text) Assessment: 67M 2 days s/p left leg incision and drainage with evacuation of hematoma- stable Plan: Patient seen and examined Discussed plan in detail with Dr. Vanessa Labs, vitals, chart reviewed- afebrile, absent leukocytosis Negative DVT CT Left lower extremity without contrast (07/17): ill-defined lobulated collection 6.8x1.9x6.8cm. prominent reticulation and edema circumferential around wound Wound culture left ernst 07/17/18 enterobacter cloacae patient's care Left leg dressed with kerlix and coban Patient underwent incision and drainage of left leg hematoma on Patient will undergo primary closure of left leg incision at 7:30am with Dr. Vanessa on 07/22/18 All questions/concerns addressed Patient reports verbal understanding and is agreeable to surgery NPO status, nothing to eat or drink after midnight Anticoagulation held RICE protocol WBAT to left lower extremity Podiatry will continue to follow the patient while on floors
--- NOTE | 2018-07-21 22:51 | CP.PCM.PCO ---
Physician Communication Note - Physician Communication Note Physician Communication Note: Please see above
[2018-07-22 03:18] LABS: BASO # 0.1 K/uL (0.0-0.2); BASO % 1.1 % (0.0-2.0); EOS # 0.7 K/uL (0.0-0.7); HEMOGLOBIN 11.7 g/dL (12.0-18.0); LYMPH # 1.8 K/uL (1.0-4.3); LYMPH % 26.1 % (20.0-40.0); MEAN CELL VOLUME 89.1 fL (80.0-94.0); MEAN CORPUSCULAR HGB CONC 33.7 g/dL (33.0-37.0); MEAN PLATELET VOLUME 7.6 fL (7.2-11.7); MONO # 0.6 K/uL (0.0-0.8); MONO % 9.4 % (0.0-10.0); NEUT # 3.7 K/uL (1.8-7.0); NEUT % 53.4 % (50.0-75.0); RBC 3.91 Mil/uL (4.40-5.90); RED CELL DISTRIBUTION WIDTH 13.8 % (11.5-14.5); WHITE BLOOD COUNT 6.9 K/uL (4.8-10.8)
[2018-07-22 03:33] LABS: ALB/GLOB RATIO 1.1 (1.0-2.1); ALBUMIN 3.7 g/dL (3.5-5.0); ALT/SGPT 23 U/L (21-72); AST/SGOT 26 U/L (17-59); BLOOD UREA NITROGEN 16 mg/dL (9-20); CALCIUM 8.7 mg/dl (8.6-10.4); GFR NON-AFRICAN AMERICAN > 60
[2018-07-22] MEDS: Vancomycin 1 gm/NS 200 ml 1 GM/200 ML BAG IVPB SCH ×2 (04:13→18:03)
--- NOTE | 2018-07-22 06:33 | OP ---
PROCEDURE DATE: 07/19/2018 PREOPERATIVE DIAGNOSIS: Left leg hematoma versus abscess. POSTOPERATIVE DIAGNOSIS: Left leg hematoma. PROCEDURE: Incision and drainage of left leg hematoma. SURGEON: Israel Vanessa DPM PAPERHANGER AND PAINTER: Amanda Herrera, PGY-1 ANESTHESIOLOGIST: Rory Payton DO ANESTHESIA: IV sedation with local block. FINDINGS: The patient is a 67-year-old male with the above diagnosis. The patient has exhausted all conservative treatments at this time and now requires surgical intervention. The patient signed the consent after careful explanation of risks, benefits, complications, and alternatives for the surgical procedure. No guarantees were given nor implied. N.p.o. status was confirmed prior to taking the patient to the OR. PREPARATION: The patient was brought into the operating room and placed on the operating room table in a supine position. Time-out was performed for identification of the correct patient and procedure. The patient received a total of 20 mL of 0.25 Marcaine plain and 10 mL of 2% Xylocaine plain in a local block type fashion to the proximal anterior aspect of the leg. The left leg was then prepped and draped in a normal sterile manner and the procedure began. No tourniquet was utilized during the procedure. DESCRIPTION OF PROCEDURE: Attention was directed to the dorsal aspect of the proximal left leg where rupturing was noted measuring approximately 5 cm x 4 cm with a V-shaped laceration in the center of it. At this point, #15 blade was utilized to deepen the incision through the V-shaped laceration. Care was taken to avoid all neurovascular structures. At this point, 50 mL of hematoma was noted in the site. The site was then expressed for any additional hematoma. At this point, the wound was irrigated with pulse lavage with gentamicin. The leg of the V-shaped laceration was then sutured in a simple suture technique using 4-0 nylon. The apex of the V-shaped laceration was then packed with 0.5 inch iodoform packing. Site was then dressed with Adaptic, gauze, ABD pads, DSD, and Coban with mild compression. POSTOPERATIVE CONDITION: The patient tolerated the local anesthesia and procedure well and was escorted to the recovery room with neurovascular status intact to the left foot and vital signs stable. The patient is to weight bear as tolerated at this time. The patient will remain in-house. Podiatry will continue to follow. Amanda Herrera Israel KAL Vanessa DANA
[2018-07-22] MEDS ORDERED: Lidocaine Hydrochloride 10 ML INJ ONE (07:42)
[2018-07-22] MEDS ORDERED: Propofol 10 mg/ml Inj (20 ML) ONE (07:45)
[2018-07-22] MEDS ORDERED: Midazolam 2 MG/2 ML VIAL ONE (07:45)
[2018-07-22] MEDS ORDERED: Bupivacaine HCl 0.5% PF (10 ml) Inj ONE (08:02)
[2018-07-22] MEDS: Ciprofloxacin 400mg/200ml D5W 400 MG/200 ML BAG IVPB SCH ×2 (08:05→21:03)
[2018-07-22] MEDS ORDERED: Oxycodone/Acetaminophen 5/325 mg Tab PO PRN ×2 (08:45)
--- NOTE | 2018-07-22 08:45 | PCM.SURG1 ---
Surgeon's Initial Post Op Note - Surgeon's Notes Surgeon: Dr. Vanessa DPM Director Human Services: Dr. Chiara Mejia PGY1 Type of Anesthesia: IV Sedation, Local Pre-Operative Diagnosis: Left leg open wound Operative Findings: See Dictation. I: Pre-Op 1% lidocaine plain, Intra-op 10cc 0.5% marcaine plain. M: 3-0 Nylon Post-Operative Diagnosis: Same Operation Performed: Left leg primary closure Specimen/Specimens Removed: None Estimated Blood Loss: EBL {In ML}: 10 Blood Products Given: N/A Drains Used: No Drains Post-Op Condition: Good Date of Surgery/Procedure: 07/22/18 Time of Surgery/Procedure: 08:44
[2018-07-22] MEDS ORDERED: HYDROmorphone 0.5 mg/0.5 ml ISec IVP PRN (08:49)
[2018-07-22] MEDS: Saccharomyces Boulardi 250 mg Cap PO SCH ×2 (10:54→18:02)
--- NOTE | 2018-07-22 13:47 | CP.PCM.PN ---
<Ila Nugent - Last Filed: 07/22/18 13:44> Subjective - Date & Time of Evaluation Date of Evaluation: 07/22/18 Time of Evaluation: 13:44 - Subjective Subjective: PGY-[address] Godfrey's service Patient seen and examined at bedside. Patient offers no acute complaints. Patient states mild pain in left lower extremity. Patient denies fevers, chills, chest pain, sob, n/v, constipation or diarrhea, and dysuria. Objective - Vital Signs/Intake and Output Vital Signs (last 24 hours): Temp Pulse Resp BP Pulse Ox 97.5 F L 57 L 14 149/87 99 07/22/18 09:35 07/22/18 09:35 07/22/18 09:35 07/22/18 09:35 07/22/18 09:35 Intake and Output: 07/22/18 07/22/18 06:59 18:59 Intake Total 810 Balance 810 - Medications Medications: Current Medications Acetaminophen (Tylenol 650mg/20.3ml Solution Ud) 650 mg PO Q6 PRN PRN Reason: Pain, Mild (1-3) Acetaminophen (Tylenol 325mg Tab) 650 mg PO Q6 PRN PRN Reason: Pain, Mild (1-3) Amlodipine Besylate (Norvasc) 5 mg PO DAILY [facility] Last Admin: 07/22/18 10:53 Dose: 5 mg Heparin Sodium (Porcine) (Heparin) 5,000 units SC Q8 [facility] Last Admin: 07/18/18 14:58 Dose: Not Given Ciprofloxacin (Cipro 400mg/200ml Dsw) 400 mg in 200 mls @ 133 mls/hr IVPB Q12H [facility]; Protocol Last Admin: 07/22/18 08:05 Dose: 200 mls Vancomycin/Sodium Chloride (Vancomycin 1 Gm/Ns 200 Ml) 1 gm in 200 mls @ 133.333 mls/hr IVPB Q12H [facility] Stop: 07/26/18 04:31 Last Admin: 07/22/18 04:13 Dose: 133.333 mls/hr Losartan Potassium (Cozaar) 50 mg PO DAILY [facility] Last Admin: 07/22/18 10:54 Dose: 50 mg Oxycodone/Acetaminophen (Percocet 5/325 Mg Tab) 1 tab PO Q4H PRN PRN Reason: Pain, moderate (4-7) Stop: 07/25/18 08:46 Oxycodone/Acetaminophen (Percocet 5/325 Mg Tab) 2 tab PO Q4H PRN PRN Reason: Pain, severe (8-10) Stop: 07/25/18 08:46 Saccharomyces Boulardii (Florastor) 250 mg PO BID [facility] Last Admin: 07/22/18 10:54 Dose: 250 mg - Labs Labs: 07/22/18 03:14 07/22/18 03:14 PT 12.9 SECONDS (9.7-12.2) H 07/19/18 06:38 INR 1.2 07/19/18 06:38 APTT 34 SECONDS (21-34) D 07/19/18 06:38 - Constitutional Appears: Non-toxic, No Acute Distress - Head Exam Head Exam: NORMAL INSPECTION, NORMOCEPHALIC - Eye Exam Eye Exam: EOMI, Normal appearance. absent: Nystagmus, Scleral icterus - ENT Exam ENT Exam: Mucous Membranes Moist - Respiratory Exam Respiratory Exam: Clear to Ausculation Bilateral, NORMAL BREATHING PATTERN. absent: Decreased Breath Sounds, Rales, Rhonchi, Wheezes - Cardiovascular Exam Cardiovascular Exam: REGULAR RHYTHM, +S1, +S2. absent: Tachycardia - GI/Abdominal Exam GI & Abdominal Exam: Soft, Normal Bowel Sounds. absent: Distended, Firm, Guarding, Rigid, Tenderness - Extremities Exam Extremities Exam: absent: Normal Inspection Additional comments: swelling noted in left lower extremity with weston bandage in place ecchymosis travels from posterior thigh to above popliteal region; demarcated w ith pen; regressing from initial demarcation - Neurological Exam Neurological Exam: Awake, Oriented x3 - Psychiatric Exam Psychiatric exam: Normal Affect, Normal Mood - Skin Skin Exam: Dry, Intact, Normal Color Additional comments: weston bandaid on lower extremity Assessment and Plan - Assessment and Plan (Free Text) Assessment: Patient is a 67 yo male w/ PMH of HTN admitted to hospital for left leg cellulitis. CT of LE showed left leg hematoma. s/p I&D with podiatry on 07-19-18. ID following for antibiotic management. Wound cx positive for enterobacter clocace. Podiatry on 07-22 went to OR for closure of left leg hematoma. Plan: Left Leg Cellulitis Podiatry Consult- Dr. Vanessa- recommendations as below ID Consult- Dr. Hayes- recommendations as below 07/17/18 CT LE- prominent reticulation and edema as well as fluid w/in the adj acent subq tissues circumferentially; may represent hematoma +wound cx for enterobacter clocae s/p I&D for hematoma on 07/19 s/p wound closure on 07/22 Vancomycin 1gm IVPB q12h Ciprofloxacin 400mg IVPB q12h no leukocytosis noted; afebrile Oxycodone 2 tab po q6h prn and Oxycodone 1 tab po q6h prn for (moderate and mild pain respectively) Tylenol PRN Vanc trough within acceptable range HTN Norvasc 5mg po daily Losartan 50mg po daily GI ppx: Floarstor DVT ppx: Heparin HHD Tylenol PRN for fever Disposition: Activity as tolerated, ambulate with PT in AM, outpatient oral ABx as per ID recs, possible discharge in AM if patient remains afebrile and can ambulate with no pain Ila Nugent PGY-1 Case d/w Dr. Godfrey <Kelly Godfrey V - Last Filed: 07/23/18 20:17> Objective - Vital Signs/Intake and Output Vital Signs (last 24 hours): Temp Pulse Resp BP Pulse Ox 97.8 F 73 20 143/74 100 07/23/18 15:05 07/23/18 15:05 07/23/18 15:05 07/23/18 15:05 07/23/18 15:05 Intake and Output: 07/23/18 07/24/18 18:59 06:59 Intake Total 650 Balance 650 - Labs Labs: 07/23/18 08:16 07/23/18 08:16 PT 12.9 SECONDS (9.7-12.2) H 07/19/18 06:38 INR 1.2 07/19/18 06:38 APTT 34 SECONDS (21-34) D 07/19/18 06:38 Attending/Attestation - Attestation I have personally seen and examined this patient.: Yes I have fully participated in the care of the patient.: Yes I have reviewed all pertinent clinical information, including history, physical exam and plan: Yes Notes (Text): This is late computer entry for 07/22/18. Patient seen, examined and case discussed with medical instrument technician. Patient seen status post OR for primary closure of lower extremity by podiatry. Discussed with, ID will continue antibiotics to cover for cellulitis and hopefully conver to PO. Agree with assessment and plan by the resident Will continue to monitor patient.
--- NOTE | 2018-07-22 14:21 | CP.PCM.PN ---
Subjective - Date & Time of Evaluation Date of Evaluation: 07/22/18 Time of Evaluation: 14:00 - Subjective Subjective: dictated Objective - Vital Signs/Intake and Output Vital Signs (last 24 hours): Temp Pulse Resp BP Pulse Ox 97.5 F L 57 L 14 149/87 99 07/22/18 09:35 07/22/18 09:35 07/22/18 09:35 07/22/18 09:35 07/22/18 09:35 Intake and Output: 07/22/18 07/22/18 06:59 18:59 Intake Total 810 Balance 810 - Medications Medications: Current Medications Acetaminophen (Tylenol 650mg/20.3ml Solution Ud) 650 mg PO Q6 PRN PRN Reason: Pain, Mild (1-3) Acetaminophen (Tylenol 325mg Tab) 650 mg PO Q6 PRN PRN Reason: Pain, Mild (1-3) Amlodipine Besylate (Norvasc) 5 mg PO DAILY [facility] Last Admin: 07/22/18 10:53 Dose: 5 mg Heparin Sodium (Porcine) (Heparin) 5,000 units SC Q8 [facility] Last Admin: 07/18/18 14:58 Dose: Not Given Ciprofloxacin (Cipro 400mg/200ml Dsw) 400 mg in 200 mls @ 133 mls/hr IVPB Q12H [facility]; Protocol Last Admin: 07/22/18 08:05 Dose: 200 mls Vancomycin/Sodium Chloride (Vancomycin 1 Gm/Ns 200 Ml) 1 gm in 200 mls @ 133.333 mls/hr IVPB Q12H [facility] Stop: 07/26/18 04:31 Last Admin: 07/22/18 04:13 Dose: 133.333 mls/hr Losartan Potassium (Cozaar) 50 mg PO DAILY [facility] Last Admin: 07/22/18 10:54 Dose: 50 mg Oxycodone/Acetaminophen (Percocet 5/325 Mg Tab) 1 tab PO Q4H PRN PRN Reason: Pain, moderate (4-7) Stop: 07/25/18 08:46 Oxycodone/Acetaminophen (Percocet 5/325 Mg Tab) 2 tab PO Q4H PRN PRN Reason: Pain, severe (8-10) Stop: 07/25/18 08:46 Saccharomyces Boulardii (Florastor) 250 mg PO BID [facility] Last Admin: 07/22/18 10:54 Dose: 250 mg - Labs Labs: 07/22/18 03:14 07/22/18 03:14 PT 12.9 SECONDS (9.7-12.2) H 07/19/18 06:38 INR 1.2 07/19/18 06:38 APTT 34 SECONDS (21-34) D 07/19/18 06:38
[2018-07-22 16:29] VITALS: RESP 20
--- NOTE | 2018-07-22 18:36 | PN ---
DATE: 07/22/2018 SUBJECTIVE: The patient is awake, alert. He complains of some redness on his face; however, I cannot appreciate that much. He denies any itching, no swelling. He is getting some physical therapy. He remains with left leg Unna boot. Denies any other complaints. No chest pain. No shortness of breath. No abdominal pain. He is putting ice on his left ankle as there is severe ecchymosis on the left leg whatever we can see besides the dressing on the left foot and the left ankle. PHYSICAL EXAMINATION: VITAL SIGNS: T-max is 97.5, heart rate of 57, blood pressure 149/87, respirations are 14. HEENT: Head is atraumatic and normocephalic. Pupils are reacting to light. NECK: Supple. LUNGS: Clear. HEART: S1, S2 is regular. ABDOMEN: Soft, nontender. No guarding. No rigidity present. EXTREMITIES: Left foot has a dressing at this time and I see that they did a left leg primary closure today. He is getting some ice to his left ankle. Right foot remains unremarkable. LABORATORY DATA: Labs are noted. Labs show white count today 6.9, hemoglobin 11.7, hematocrit 34.8, platelet count is 408 and BUN is 16, creatinine 0.8. Rest is unremarkable. Vanco trough is 8.3, is on the low side. ASSESSMENT AND PLAN: I would have increased the dose but his face that he is complaining of, we will keep a close eye, hopefully it is not any reaction to any antibiotics. So we will continue the same at this time. We will follow. It looks like he had a large hematoma in the left leg which was infected and grew Enterobacter cloacae. Because of the trauma he had sustained, he had lot of ecchymosis on the left leg but his hemoglobin and hematocrit is now stable. To continue antibiotics at this time as he did get a primary closure of the wound today. Blanca Hayes MD
[2018-07-23] MEDS: Vancomycin 1 gm/NS 200 ml 1 GM/200 ML BAG IVPB SCH (04:09)
--- NOTE | 2018-07-23 06:58 | CP.PCM.PN ---
Objective - Vital Signs/Intake and Output Vital Signs (last 24 hours): Temp Pulse Resp BP Pulse Ox 98.6 F 62 20 131/79 96 07/22/18 23:35 07/22/18 23:35 07/22/18 23:35 07/22/18 23:35 07/22/18 23:35 Intake and Output: 07/22/18 07/23/18 18:59 06:59 Intake Total 810 Output Total 850 Balance 810 -850 - Medications Medications: Current Medications Acetaminophen (Tylenol 650mg/20.3ml Solution Ud) 650 mg PO Q6 PRN PRN Reason: Pain, Mild (1-3) Acetaminophen (Tylenol 325mg Tab) 650 mg PO Q6 PRN PRN Reason: Pain, Mild (1-3) Amlodipine Besylate (Norvasc) 5 mg PO DAILY [facility] Last Admin: 07/22/18 10:53 Dose: 5 mg Heparin Sodium (Porcine) (Heparin) 5,000 units SC Q8 [facility] Last Admin: 07/22/18 21:12 Dose: Not Given Ciprofloxacin (Cipro 400mg/200ml Dsw) 400 mg in 200 mls @ 133 mls/hr IVPB Q12H [facility]; Protocol Last Admin: 07/22/18 21:03 Dose: 133 mls/hr Vancomycin/Sodium Chloride (Vancomycin 1 Gm/Ns 200 Ml) 1 gm in 200 mls @ 133.333 mls/hr IVPB Q12H [facility] Stop: 07/26/18 04:31 Last Admin: 07/23/18 04:09 Dose: 133.333 mls/hr Losartan Potassium (Cozaar) 50 mg PO DAILY [facility] Last Admin: 07/22/18 10:54 Dose: 50 mg Oxycodone/Acetaminophen (Percocet 5/325 Mg Tab) 1 tab PO Q4H PRN PRN Reason: Pain, moderate (4-7) Stop: 07/25/18 08:46 Oxycodone/Acetaminophen (Percocet 5/325 Mg Tab) 2 tab PO Q4H PRN PRN Reason: Pain, severe (8-10) Stop: 07/25/18 08:46 Saccharomyces Boulardii (Florastor) 250 mg PO BID [facility] Last Admin: 07/22/18 18:02 Dose: 250 mg - Labs Labs: 07/22/18 03:14 07/22/18 03:14 PT 12.9 SECONDS (9.7-12.2) H 07/19/18 06:38 INR 1.2 07/19/18 06:38 APTT 34 SECONDS (21-34) D 07/19/18 06:38 Assessment and Plan - Assessment and Plan (Free Text) Assessment: Patient is a 67 yo male w/ PMH of HTN admitted to hospital for left leg cellulitis. CT of LE showed left leg hematoma. s/p I&D with podiatry on 07-19-18. ID following for antibiotic management. Wound cx positive for enterobacter clocace. Podiatry on 07-22 went to OR for closure of left leg hematoma. Plan: Left Leg Cellulitis Podiatry Consult- Dr. Vanessa- recommendations as below ID Consult- Dr. Hayes- recommendations as below 07/17/18 CT LE- prominent reticulation and edema as well as fluid w/in the adjacent subq tissues circumferentially; may represent hematoma +wound cx for enterobacter clocae s/p I&D for hematoma on 07/19 s/p wound closure on 07/22 Vancomycin 1gm IVPB q12h (started 07-19) Ciprofloxacin 400mg IVPB q12h (started 07-19) no leukocytosis noted; afebrile Oxycodone 2 tab po q6h prn and Oxycodone 1 tab po q6h prn for (moderate and mild pain respectively) Tylenol PRN Vanc trough within acceptable range HTN Norvasc 5mg po daily Losartan 50mg po daily GI ppx: Floarstor DVT ppx: Heparin HHD Tylenol PRN for fever Disposition: Continue PT; Outpatient abx if pain controlled when patient ambulates; afebrile for 24 hours with no leukocytosis Ila Nugent PGY-1 Case d/w Dr. Godfrey
[2018-07-23] MEDS: Ciprofloxacin 400mg/200ml D5W 400 MG/200 ML BAG IVPB SCH (08:29)
[2018-07-23 08:37] LABS: BASO # 0.1 K/uL (0.0-0.2); BASO % 1.1 % (0.0-2.0); EOS # 0.7 K/uL (0.0-0.7); EOS % 9.7 % (0.0-4.0); HEMOGLOBIN 11.8 g/dL (12.0-18.0); LYMPH # 1.5 K/uL (1.0-4.3); LYMPH % 22.5 % (20.0-40.0); MEAN CORPUSCULAR HEMOGLOBIN 29.7 pg (27.0-31.0); MEAN CORPUSCULAR HGB CONC 33.4 g/dL (33.0-37.0); MEAN PLATELET VOLUME 7.7 fL (7.2-11.7); MONO # 0.6 K/uL (0.0-0.8); MONO % 9.2 % (0.0-10.0); NEUT # 3.9 K/uL (1.8-7.0); NEUT % 57.5 % (50.0-75.0); RBC 3.95 Mil/uL (4.40-5.90); RED CELL DISTRIBUTION WIDTH 13.8 % (11.5-14.5); WHITE BLOOD COUNT 6.8 K/uL (4.8-10.8)
[2018-07-23 09:18] LABS: ALB/GLOB RATIO 1.2 (1.0-2.1); ALBUMIN 3.8 g/dL (3.5-5.0); ALT/SGPT 23 U/L (21-72); AST/SGOT 27 U/L (17-59); BLOOD UREA NITROGEN 14 mg/dL (9-20); CALCIUM 8.6 mg/dl (8.6-10.4); GFR NON-AFRICAN AMERICAN > 60
[2018-07-23] MEDS: Saccharomyces Boulardi 250 mg Cap PO SCH (09:29)
--- NOTE | 2018-07-23 14:03 | CP.PCM.PN ---
Subjective - Date & Time of Evaluation Date of Evaluation: 07/23/18 Time of Evaluation: 14:01 - Subjective Subjective: Podiatry Progress Note- Dr. Vanessa 67M seen and evaluated 1 day s/p primary closure of left leg secondary to incision and drainage of hematoma left leg secondary to trauma. Patient reports pain to left leg secondary to tight dressing. After dressing removed, patient reports improved pain. No calf tenderness or pain with palpation. Denies nausea, fever, shortness of breath, chest pains or chills. Objective - Vital Signs/Intake and Output Vital Signs (last 24 hours): Temp Pulse Resp BP Pulse Ox 98.1 F 60 20 123/71 95 07/23/18 08:35 07/23/18 08:35 07/23/18 08:35 07/23/18 08:35 07/23/18 08:35 Intake and Output: 07/23/18 07/23/18 06:59 18:59 Output Total 850 Balance -850 - Medications Medications: Current Medications Acetaminophen (Tylenol 650mg/20.3ml Solution Ud) 650 mg PO Q6 PRN PRN Reason: Pain, Mild (1-3) Acetaminophen (Tylenol 325mg Tab) 650 mg PO Q6 PRN PRN Reason: Pain, Mild (1-3) Amlodipine Besylate (Norvasc) 5 mg PO DAILY [facility] Last Admin: 07/23/18 09:29 Dose: 5 mg Heparin Sodium (Porcine) (Heparin) 5,000 units SC Q8 [facility] Last Admin: 07/23/18 13:26 Dose: 5,000 units Ciprofloxacin (Cipro 400mg/200ml Dsw) 400 mg in 200 mls @ 133 mls/hr IVPB Q12H [facility]; Protocol Last Admin: 07/23/18 08:29 Dose: 133 mls/hr Vancomycin/Sodium Chloride (Vancomycin 1 Gm/Ns 200 Ml) 1 gm in 200 mls @ 133.333 mls/hr IVPB Q12H [facility] Stop: 07/26/18 04:31 Last Admin: 07/23/18 04:09 Dose: 133.333 mls/hr Losartan Potassium (Cozaar) 50 mg PO DAILY [facility] Last Admin: 07/23/18 09:29 Dose: 50 mg Oxycodone/Acetaminophen (Percocet 5/325 Mg Tab) 1 tab PO Q4H PRN PRN Reason: Pain, moderate (4-7) Stop: 07/25/18 08:46 Oxycodone/Acetaminophen (Percocet 5/325 Mg Tab) 2 tab PO Q4H PRN PRN Reason: Pain, severe (8-10) Stop: 07/25/18 08:46 Saccharomyces Boulardii (Florastor) 250 mg PO BID [facility] Last Admin: 07/23/18 09:29 Dose: 250 mg - Labs Labs: 07/23/18 08:16 07/23/18 08:16 PT 12.9 SECONDS (9.7-12.2) H 07/19/18 06:38 INR 1.2 07/19/18 06:38 APTT 34 SECONDS (21-34) D 07/19/18 06:38 Assessment and Plan - Assessment and Plan (Free Text) Assessment: 67M seen and evaluated 1 day s/p primary closure of left leg secondary to incision and drainage of hematoma left leg secondary to trauma- stable Plan: Patient seen and evaluated Discussed plan in detail with attending Dressing removed, cleansed with saline solution, painted with betadine, dressed with xeroform, dsd, and kerlix JUSTIN compression applied Patient is stable per podiatry standpoint Will follow up with Dr. 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
--- NOTE | 2018-07-23 15:18 | CP.PCM.DIS ---
<Ila Nugent - Last Filed: 07/23/18 15:15> Provider - Provider Date of Admission: 07/18/18 15:13 Attending physician: Cong Grier MD Consults: 07/18/18 08:00 Podiatry Consult Routine Comment: Consulting Provider: Israel Vanessa Consulting Physician: Israel Vanessa Reason for Consult: worsening wound extending into ankle 07/19/18 09:42 Infectious Disease Consult Routine Comment: Consulting Provider: Blanca Hayes Consulting Physician: Blanca Hayes Reason for Consult: left leg cellulitis. I&D 07/19/18 at 12:30. Vanco&Zosyn. Gram Neg Cx Time Spent in preparation of Discharge (in minutes): 45 Hospital Course - Lab Results Lab Results: Micro Results 07/17/18 12:27 Blood Blood Culture - Final NO GROWTH AFTER 5 DAYS 07/17/18 12:27 Blood Gram Stain - Final TEST NOT PERFORMED 07/17/18 12:27 Blood Blood Culture - Final NO GROWTH AFTER 5 DAYS 07/17/18 12:27 Blood Gram Stain - Final TEST NOT PERFORMED 07/17/18 16:31 Skin - Macias-Left Gram Stain - Final 07/17/18 16:31 Skin - Macias-Left Wound Culture - Final Enterobacter Cloacae Ssp Cloac Most Recent Lab Values WBC 6.8 K/uL (4.8-10.8) 07/23/18 08:16 RBC 3.95 Mil/uL (4.40-5.90) L 07/23/18 08:16 Hgb 11.8 g/dL (12.0-18.0) L 07/23/18 08:16 Hct 35.2 % (35.0-51.0) 07/23/18 08:16 MCV 89.0 fL (80.0-94.0) 07/23/18 08:16 MCH 29.7 pg (27.0-31.0) 07/23/18 08:16 MCHC 33.4 g/dL (33.0-37.0) 07/23/18 08:16 RDW 13.8 % (11.5-14.5) 07/23/18 08:16 Plt Count 431 K/uL (130-400) H 07/23/18 08:16 MPV 7.7 fL (7.2-11.7) 07/23/18 08:16 Neut % (Auto) 57.5 % (50.0-75.0) 07/23/18 08:16 Lymph % (Auto) 22.5 % (20.0-40.0) 07/23/18 08:16 Ripley % (Auto) 9.2 % (0.0-10.0) 07/23/18 08:16 Eos % (Auto) 9.7 % (0.0-4.0) H 07/23/18 08:16 Baso % (Auto) 1.1 % (0.0-2.0) 07/23/18 08:16 Neut # (Auto) 3.9 K/uL (1.8-7.0) 07/23/18 08:16 Lymph # (Auto) 1.5 K/uL (1.0-4.3) 07/23/18 08:16 Ripley # (Auto) 0.6 K/uL (0.0-0.8) 07/23/18 08:16 Eos # (Auto) 0.7 K/uL (0.0-0.7) 07/23/18 08:16 Baso # (Auto) 0.1 K/uL (0.0-0.2) 07/23/18 08:16 PT 12.9 SECONDS (9.7-12.2) H 07/19/18 06:38 INR 1.2 07/19/18 06:38 APTT 34 SECONDS (21-34) D 07/19/18 06:38 Sodium 137 mmol/L (132-148) 07/23/18 08:16 Potassium 3.7 mmol/L (3.6-5.2) 07/23/18 08:16 Chloride 105 mmol/L (98-107) 07/23/18 08:16 Carbon Dioxide 26 mmol/L (22-30) 07/23/18 08:16 Anion Gap 10 (10-20) 07/23/18 08:16 BUN 14 mg/dL (9-20) 07/23/18 08:16 Creatinine 0.7 mg/dL (0.8-1.5) L 07/23/18 08:16 Est GFR ( Amer) > 60 07/23/18 08:16 Est GFR (Non-Af Amer) > 60 07/23/18 08:16 Random Glucose 94 mg/dL (75-110) 07/23/18 08:16 Calcium 8.6 mg/dl (8.6-10.4) 07/23/18 08:16 Phosphorus 3.2 mg/dL (2.5-4.5) 07/23/18 08:16 Magnesium 2.2 mg/dL (1.6-2.3) 07/23/18 08:16 Total Bilirubin 0.9 mg/dL (0.2-1.3) 07/23/18 08:16 AST 27 U/L (17-59) 07/23/18 08:16 ALT 23 U/L (21-72) 07/23/18 08:16 Alkaline Phosphatase 72 U/L (38-126) 07/23/18 08:16 Total Protein 6.8 g/dL (6.3-8.3) 07/23/18 08:16 Albumin 3.8 g/dL (3.5-5.0) 07/23/18 08:16 Globulin 3.1 gm/dL (2.2-3.9) 07/23/18 08:16 Albumin/Globulin Ratio 1.2 (1.0-2.1) 07/23/18 08:16 Vancomycin Trough 8.3 ug/mL (5.0-10.0) 07/22/18 03:14 - Hospital Course Hospital Course: Upon Admission: Mr. Kaylyn Villeda is a 67 year old male [facility] hypertension came to the ED for wound check. On 07/11, he tripped on pavement and landed on a sharp metal object. He received a tetanus booster at which recommended he come to the ED for sutures of the laceration. They placed 12 sutures total after expressing pus and hematomas. On 07/13, he returned to the ED for reddening of the wound, getting warmer. He was discharged with Cephalexin and Bacitracin. Patient states that he has been wrapping the wound with plastic in the shower, washing the wound with warm water and covering with Bacitracin as directed. He states he has been compliant with medication. He came in today as the reddening has spread and there is ecchymosis extending down his ankle and above his knee beyond the borders of the skin marker drawn during previous visits and ankle swelling. Denies fever, chills, weakness, chest pain, numbness, tingling, abdominal pain. Hospital Course: Patient is a 67 yo male w/ PMH of HTN admitted to hospital for left leg cellulitis. CT of LE showed left leg hematoma. s/p I&D with podiatry on 07-19-18. ID following for antibiotic management. Wound cx positive for enterobacter clocace. Podiatry on 07-22 went to OR for closure of left leg hematoma. Patient discharged with oral ciprofloxacin and educated to continue home meds as prescribed. Discharge Plan: 1. Patient is stable for discharge to home as per Dr. Godfrey. 2. Patient is to followup [facility] within 3-7 days of discharge from hospital. Information will be given please call for appointment. 3. Patient will continue taking the following medications: Losartan 50 once daily, Amlodipine 5mg once daily. 4. Patient will take the following antibiotic for the next 10 days: (07-24 to ) Ciprofloxacin 500mg twice a day for next 10 days. 5. Patient was educated about plan and agrees to above. 6. Patient is educated to return to hospital if symptoms worsen or recur. Disposition: Above is a shortened synopsis of patient's current hospital admission. For full report refer to EMR. Discharge Exam - Head Exam Head Exam: NORMAL INSPECTION, NORMOCEPHALIC - Eye Exam Eye Exam: EOMI, Normal appearance. absent: Nystagmus, Scleral icterus Pupil Exam: NORMAL ACCOMODATION - Respiratory Exam Respiratory Exam: Clear to PA & Lateral, NORMAL BREATHING PATTERN. absent: Chest Wall Tenderness, Decreased Breath Sounds, Respiratory Distress - Cardiovascular Exam Cardiovascular Exam: REGULAR RHYTHM, +S1, +S2. absent: Tachycardia - GI/Abdominal Exam GI & Abdominal Exam: Normal Bowel Sounds, Soft. absent: Diminished Bowel Sounds, Distended, Firm, Guarding, Hernia, Tenderness - Extremities Exam Additional comments: swelling noted in left lower extremity with weston bandage in place, decreasing, patient able to ambulate without pain ecchymosis travels from posterior thigh to above popliteal region; demarcated with pen; regressing from initial demarcation - Back Exam Back exam: NORMAL INSPECTION. absent: CVA tenderness (L), CVA tenderness (R) - Neurological Exam Neurological exam: Alert, Oriented x3 - Psychiatric Exam Psychiatric exam: Normal Affect, Normal Mood - Skin Skin Exam: Dry, Intact, Normal Color Discharge Plan - Discharge Medications Prescriptions: RX: Ciprofloxacin [Cipro] 500 mg PO BID #20 tab - Follow Up Plan Condition: GOOD Disposition: HOME/ ROUTINE Instructions: Ciprofloxacin (Systemic), Wound Incision and Drainage (DC), Cellulitis (DC) Additional Instructions: 1. Patient is stable for discharge to home as per Dr. Godfrey. 2. Patient is to followup with primary doctor or [facility] within 3-7 days of discharge from hospital. 3. Patient will continue taking the following medications: Losartan 50 once daily, Amlodipine 5mg once daily. 4. Patient will take the following antibiotic for the next 10 days: (07-24 to - ) Ciprofloxacin 500mg twice a day for next 10 days. 5. Patient was educated about plan and agrees to above. 6. Patient is educated to return to hospital if symptoms worsen or recur. 1. El paciente se encuentra estable para el [facility] segn el Dr[facility] Godfrey. 2. El paciente debe realizar un seguimiento con el harika nelsonra o la clnica de daniela del vecindario dentro de los 3 a 7 arredondo posteriores al [facility]. 3. El paciente continuar tomando los siguientes medicamentos: Losartan 50 turn[address] al da, Amlodipine 5 mg turner vez al da. 4. El paciente kaia el siguiente antibitico alyse los prximos 10 arredondo: ( a -) Ciprofloxacina 500 mg dos veces al da alyse los prximos 10 arredondo. 5. El paciente fue educado sobre el plan y est de acuerdo con lo anterior. 6. Se educa al paciente para que regrese al hospital si los sntomas empeoran o reaparecen. Referrals: [facility] at [facility] [Outside] <Kelly Godfrey V - Last Filed: 07/23/18 20:26> Provider - Provider Date of Admission: 07/18/18 15:13 Attending physician: Cong Grier MD Consults: 07/18/18 08:00 Podiatry Consult Routine Comment: Consulting Provider: Israel Vanessa Consulting Physician: Israel Vanessa Reason for Consult: worsening wound extending into ankle 07/19/18 09:42 Infectious Disease Consult Routine Comment: Consulting Provider: Blanca Hayes Consulting Physician: Blanca Hayes Reason for Consult: left leg cellulitis. I&D 07/19/18 at 12:30. Vanco&Zosyn. Gram Neg Cx Hospital Course - Lab Results Lab Results: Micro Results 07/17/18 12:27 Blood Blood Culture - Final NO GROWTH AFTER 5 DAYS 07/17/18 12:27 Blood Gram Stain - Final TEST NOT PERFORMED 07/17/18 12:27 Blood Blood Culture - Final NO GROWTH AFTER 5 DAYS 07/17/18 12:27 Blood Gram Stain - Final TEST NOT PERFORMED 07/17/18 16:31 Skin - Macias-Left Gram Stain - Final 07/17/18 16:31 Skin - Macias-Left Wound Culture - Final Enterobacter Cloacae Ssp Cloac Most Recent Lab Values WBC 6.8 K/uL (4.8-10.8) 07/23/18 08:16 RBC 3.95 Mil/uL (4.40-5.90) L 07/23/18 08:16 Hgb 11.8 g/dL (12.0-18.0) L 07/23/18 08:16 Hct 35.2 % (35.0-51.0) 07/23/18 08:16 MCV 89.0 fL (80.0-94.0) 07/23/18 08:16 MCH 29.7 pg (27.0-31.0) 07/23/18 08:16 MCHC 33.4 g/dL (33.0-37.0) 07/23/18 08:16 RDW 13.8 % (11.5-14.5) 07/23/18 08:16 Plt Count 431 K/uL (130-400) H 07/23/18 08:16 MPV 7.7 fL (7.2-11.7) 07/23/18 08:16 Neut % (Auto) 57.5 % (50.0-75.0) 07/23/18 08:16 Lymph % (Auto) 22.5 % (20.0-40.0) 07/23/18 08:16 Ripley % (Auto) 9.2 % (0.0-10.0) 07/23/18 08:16 Eos % (Auto) 9.7 % (0.0-4.0) H 07/23/18 08:16 Baso % (Auto) 1.1 % (0.0-2.0) 07/23/18 08:16 Neut # (Auto) 3.9 K/uL (1.8-7.0) 07/23/18 08:16 Lymph # (Auto) 1.5 K/uL (1.0-4.3) 07/23/18 08:16 Ripley # (Auto) 0.6 K/uL (0.0-0.8) 07/23/18 08:16 Eos # (Auto) 0.7 K/uL (0.0-0.7) 07/23/18 08:16 Baso # (Auto) 0.1 K/uL (0.0-0.2) 07/23/18 08:16 PT 12.9 SECONDS (9.7-12.2) H 07/19/18 06:38 INR 1.2 07/19/18 06:38 APTT 34 SECONDS (21-34) D 07/19/18 06:38 Sodium 137 mmol/L (132-148) 07/23/18 08:16 Potassium 3.7 mmol/L (3.6-5.2) 07/23/18 08:16 Chloride 105 mmol/L (98-107) 07/23/18 08:16 Carbon Dioxide 26 mmol/L (22-30) 07/23/18 08:16 Anion Gap 10 (10-20) 07/23/18 08:16 BUN 14 mg/dL (9-20) 07/23/18 08:16 Creatinine 0.7 mg/dL (0.8-1.5) L 07/23/18 08:16 Est GFR ( Amer) > 60 07/23/18 08:16 Est GFR (Non-Af Amer) > 60 07/23/18 08:16 Random Glucose 94 mg/dL (75-110) 07/23/18 08:16 Calcium 8.6 mg/dl (8.6-10.4) 07/23/18 08:16 Phosphorus 3.2 mg/dL (2.5-4.5) 07/23/18 08:16 Magnesium 2.2 mg/dL (1.6-2.3) 07/23/18 08:16 Total Bilirubin 0.9 mg/dL (0.2-1.3) 07/23/18 08:16 AST 27 U/L (17-59) 07/23/18 08:16 ALT 23 U/L (21-72) 07/23/18 08:16 Alkaline Phosphatase 72 U/L (38-126) 07/23/18 08:16 Total Protein 6.8 g/dL (6.3-8.3) 07/23/18 08:16 Albumin 3.8 g/dL (3.5-5.0) 07/23/18 08:16 Globulin 3.1 gm/dL (2.2-3.9) 07/23/18 08:16 Albumin/Globulin Ratio 1.2 (1.0-2.1) 07/23/18 08:16 Vancomycin Trough 8.3 ug/mL (5.0-10.0) 07/22/18 03:14 Attending/Attestation - Attestation I have personally seen and examined this patient.: Yes I have fully participated in the care of the patient.: Yes I have reviewed all pertinent clinical information, including history, physical exam and plan: Yes Notes (Text): Patient seen, examined, and case discussed with medical billing supervisor. Patient seen this afternoon denies acute complaints. He reports he is been walking without difficulty. Per podiatry, stable from their standpoint recommend for follow-up with Dr. Vanessa in one week. Discussed with infectious disease, patient to complete ten day course of Ciprofloxacin. Discharge Diagnoses: 1) Cellulitis-->d/c on ten day course of Cipro per ID 2) leg open wound--> s/p leg wound primary closure 07/22/18; stable podiatry standpoint, f/u in office in 1 week, wound instructions per podiatry 3) hypertension-->controlled c/w antihypertensives Recommended f/u with the [facility] within one week. Recommended referral to podiatry clinic for further monitoring. This is a summary of patient's hospitalization. Please EMR for full detail of record.
[2018-07-23 17:04] VITALS: BP 143/74; PULSE 73; TEMP 97.8; O2SAT 100
--- NOTE | 2018-07-24 06:45 | OP ---
PROCEDURE DATE: 07/22/2018 PREOPERATIVE DIAGNOSIS: Primary closure of open left leg wound. POSTOPERATIVE DIAGNOSIS: Primary closure of open left leg wound. PROCEDURE: Primary closure of left leg wound. INDICATIONS: The patient is a 67-year-old male with the above diagnosis. The patient has exhausted all conservative treatments at this time and now requires surgical intervention. The patient signed the consent after careful explanation of risks, benefits, complications, and alternatives for surgical procedure. No guarantees were given nor implied. N.p.o. status was confirmed prior to taking the patient to the operating room. SURGEON: Israel Vanessa DPM [employer] ADMINISTRATOR: ADAM Burk TYPE OF ANESTHESIA: IV sedation with local. PREPARATION: The patient was brought to the operating room and placed on the operating room table in a supine position. After induction of IV sedation, the patient received a total of 10 mL of 1% lidocaine plain in a local block fashion to the left leg. Once the anesthesia was achieved, the left foot and leg were then prepped and draped in a normal sterile manner and the procedure began. DESCRIPTION OF PROCEDURE: Attention was turned to the anterior aspect of the left leg where a previously partially closed wound secondary to trauma and subsequent incision and drainage was appreciated. At this time, sutures were removed and the area was curetted to a healthy granular base. Area was then pulse lavaged with copious amounts of normal sterile saline. The skin was then approximated utilizing 3-0 nylon. At this time, 10 mL of 0.5% Marcaine plain was then injected to the brittney-wound area, the site was then dressed with Xeroform, DSD, Kerlix, and Manish bandage. POSTOPERATIVE CONDITION: The patient tolerated the anesthesia and procedure well and was escorted to the recovery room with all vital signs stable and neurovascular status intact to the left foot and leg. The patient will be continued to be seen on the floors at [facility] and pending discharge will follow up in Dr. Vanessa's office within one week. MO Burk Israel Vanessa DPM [facility] # [id number]
== END 2018-07-23 18:11 | disposition home or self-care (01) | DRG 364 ==
LOC: C.ER 10:24 → C.9E 14:30 → C.6T 23:24 → OBSVTOIN 07-18 15:13
PROVIDERS: ADMIT Internal Medicine; ATTEND Internal Medicine
PROC: 0J9P0ZZ Drainage of Left Lower Leg Subcutaneous Tissue and Fascia, Open Approach (ICD-10-PCS; principal; 2018-07-19 12:15)
PROC: 0JQP0ZZ Repair Left Lower Leg Subcutaneous Tissue and Fascia, Open Approach (ICD-10-PCS; 2018-07-22)
DX: L03.116 Cellulitis of left lower limb (principal); I10 Essential (primary) hypertension